=== PATIENT | male | born 1955 | race Caucasian/White ===

== ENCOUNTER 2020-05-14 11:00 | Inpatient (IN) | payer MEDICARE ==
[2020-05-14 11:40] LABS: #Lymphocytes 0.6 thou/uL (1.20-3.40); #Monocytes 0.9 thou/uL (0.11-0.59); #Neutrophils 16.5 thou/uL (1.40-6.50); %Basophils 0.1 % (0.0-1.0); %Eosinophils 0.1 % (0.0-10.0); %Lymphocytes 3.5 % (21.0-51.0); %Monocytes 4.9 % (0.0-10.0); %Neutrophils 91.4 % (42.0-75.0); Hemoglobin 12.5 g/dL (14.0-18.0); Mean Corpuscular HGB CONC 33.9 g/dL (32.0-36.0); Mean Corpuscular Hemoglobin 34.2 pg (27.0-31.0); Mean Platelet Volume 8.4 fL (7.4-10.4); Platelet Count 273 thou/uL (130-400); RBC Distribution Width 11.3 % (11.5-14.5); Red Blood Cell (RBC) Count 3.65 mill/uL (4.70-6.10)
[2020-05-14 12:00] LABS: ALT (SGPT) 78 U/L (8-55); AST (SGOT) 52 U/L (5-34); Albumin 3.5 g/dL (3.4-4.8); Alkaline Phosphatase 89 U/L (40-110); Anion Gap 16 mmol/L (10-20); BUN (Urea Nitrogen) 18 mg/dL (8.4-25.7); Bilirubin, Total 0.3 mg/dL (0.2-1.2); Calc. Creatinine Clearance 0 mL/min (70-130); Calcium 8.1 mg/dL (7.8-10.44); Carbon Dioxide 22 mmol/L (23-31); Chloride 103 mmol/L (98-107); Globulin 2.6 g/dL (2.4-3.5); Glucose 137 mg/dL (80-115); Potassium 3.1 mmol/L (3.5-5.1); Protein, Total 6.1 g/dL (5.8-8.1); Sodium 138 mmol/L (136-145)
[2020-05-14] MEDS ORDERED: Acetaminophen 500 MG TAB ONE (12:36)
[2020-05-14] MEDS ORDERED: cefTRIAXone\\ROCEPHIN 2 GM VIAL ONE (12:36)
[2020-05-14] MEDS ORDERED: Albuterol 200 PUFF (6.7GM INHALER) ONE (12:55)
--- NOTE | 2020-05-14 12:58 | RAD ---
PORTABLE CHEST: HISTORY: Positive for COVID. Pneumonia. COMPARISON: 05/12/2020. FINDINGS/IMPRESSION: There are bilateral hazy and confluent infiltrates in the mid and lower lungs. These appear more pro minent when compared to 05/12/2020, although some of this is due to differences in exposure and techni que. POS: AGW
[2020-05-14] MEDS ORDERED: Potassium Chloride 20 MEQ TAB ONE (12:59)
[2020-05-14] MEDS ORDERED: Iopamidol-370 76% 500 ML 1 ML ONE (14:26)
--- NOTE | 2020-05-14 14:51 | CT ---
EXAM: CT angiogram of the chest including 3-D rendering: HISTORY: Worsening shortness of breath COMPARISON: Chest x-ray, 05/12/2020 FINDINGS: There is adequate opacification of the pulmonary arteries. No evidence for aortic aneurysm or dissection. No convincing CT evidence for acute pulmonary embolism. Very extensive patchy groundglass and linear opacity changes noted bilaterally evidence for bilateral Covid pneumonia. Evidence for 3 vessel coronary calcific disease. No evidence for mediastinal mass or adenopathy. Small bilateral pleural effusions. No pericardial effusion. The visualized upper abdomen is unremarkable. IMPRESSION: No convincing CT evidence for acute pulmonary embolism. Exam is somewhat limited in the lower lobes b ecause of motion. Evidence for severe bilateral Covid pneumonia.
[2020-05-14 15:00] LABS: Troponin I 0.024 ng/mL (< 0.028)
[2020-05-14 15:55] VITALS: BMI 38.5
[2020-05-14] MEDS ORDERED: Metoclopramide HCl 10 MG/2 ML VIAL IVP PRN (16:32)
[2020-05-14] MEDS ORDERED: Albuterol Sulfate 2.5 mg/3 ml Neb NEB PRN (16:32)
[2020-05-14] MEDS ORDERED: Cepastat Lozenges 1 LOZ PO PRN (16:32)
[2020-05-14] MEDS ORDERED: Senokot S 8.6-50 MG TAB PO PRN (16:32)
[2020-05-14] MEDS ORDERED: Sodium Chloride 0.65% Nasal 44 ML BOT EA NARE PRN (16:32)
[2020-05-14] MEDS ORDERED: Bisacodyl 10 MG SUPP PR PRN (16:32)
[2020-05-14] MEDS ORDERED: Ondansetron PF 4 MG/2 ML Vial IVP PRN (16:32)
[2020-05-14] MEDS ORDERED: Loperamide HCl 2 MG CAP PO PRN (16:32)
[2020-05-14] MEDS ORDERED: Calcium Carbonate 500 MG ChewTAB PO PRN (16:32)
[2020-05-14] MEDS ORDERED: hydrALAZINE 20 MG/ML VIAL SLOW IVP PRN (16:32)
[2020-05-14] MEDS ORDERED: Ondansetron ODT 4 MG TAB PO PRN (16:32)
[2020-05-14] MEDS ORDERED: HYDROcodone/Acetaminophen 5/325 mg Tablet PO PRN (16:32)
[2020-05-14] MEDS ORDERED: Loratadine 10 MG TAB PO PRN (16:32)
--- NOTE | 2020-05-14 17:00 | PDOC.HHP ---
Hospitalist HPI - History of Present Illness Shortness of breath History of Present Illness: 64-year-old male who was tested positive for COVID-19 on , he was exposed with his daughter on Saturday who was tested positive for COVID-19, he went to urgent care yesterday with increasing shortness of breath and he had chest x-ray done which showed pneumonia, he was given ivermectin and dexamethasone, patient did not improve and he was having increasing shortness of breath and increasing fever and that is why he decided to come to emergency room for further evaluation, today in the emergency room his chest x-ray showed bilateral infiltration in lower lungs, CT angio was negative for PE, he was febr ile, he was requiring more oxygen, with exertion his oxygen saturation was dropping, he was given albuterol inhaler, potassium chloride, Rocephin timolol and IV fluid and subsequently he is admitted to medical floor for further evaluation and treatment. He denies any loss of taste or smell sensation, he is feeling fatigue and tired, he has cough, he denies any sputum, he denies any chest pain or nausea vomiting diarrhea. ED Course: Patient has received 1 L IV fluid, Rocephin, timolol, potassium chloride And albuterol inhaler Hospitalist ROS - Review of Systems Constitutional: reports: fever, chills, weakness, malaise Eyes: denies: pain, vision change, conjunctivae inflammation, eyelid inflammation, redness, other ENT: denies: ear pain, ear discharge, nose pain, nose discharge, nose congestion, mouth pain, mouth swelling, throat pain, throat swelling, other Respiratory: reports: cough, shortness of breath, SOB with excertion. denies: dry, hemoptysis, pleuritic pain, sputum, wheezing, other Cardiovascular: denies: chest pain, palpitations, orthopnea, paroxysmal noc. dyspnea, edema, light headedness, other Gastrointestinal: denies: nausea, vomiting, abdominal pain, diarrhea, constipation, melena, hematochezia, other Genitourinary: denies: dysuria, frequency, incontinence, hematuria, retention, other Musculoskeletal: denies: neck pain, shoulder pain, arm pain, back pain, hand pain, leg pain, foot pain, other Skin: denies: rash, lesions, deyvi, bruising, other - Medication Medications: Resuscitation Status - Order Detail: 05/14/20 13:15 Resuscitation Status Routine Resuscitation Status: FULL: Full Resuscitation Medication Instructions Recorded Confirmed Type Albuterol Sulfate [Albuterol 1 inh PO Q4HR PRN 05/14/20 05/14/20 History Sulfate Hfa] Ascorbic Acid [Vitamin C] 1 tab PO DAILY 05/14/20 05/14/20 History Aspirin Chewable [Aspirin Chewable 1 tablet PO DAILY 05/14/20 05/14/20 History Tablet] Azithromycin 1 tab PO DAILY 05/14/20 05/14/20 History Cholecalciferol (Vitamin D3) 1 tablet PO DAILY 05/14/20 05/14/20 History [Vitamin D3] Dexamethasone 1 tab PO DAILY 05/14/20 05/14/20 History Famotidine 1 tab PO DAILY 05/14/20 05/14/20 History Losartan/Hydrochlorothiazide 1 tab PO DAILY 05/14/20 05/14/20 History [Losartan-Hctz 100-25 mg Tab] Melatonin 1 tab PO HS PRN 05/14/20 05/14/20 History Pravastatin Sodium [Pravachol] 1 tab PO DAILY 05/14/20 05/14/20 History Quercetin Dihydrate 1 tab PO DAILY 05/14/20 05/14/20 History Tamsulosin HCl [Flomax] 1 tablet PO DAILY 05/14/20 05/14/20 History Vitamin B Complex [B Complex] 1 tablet PO 05/14/20 History Zinc Gluconate [Zinc] 1 tab PO DAILY 05/14/20 05/14/20 History Allergies No Known Allergies Allergy (Verified 05/14/20 16:04) Hospitalist History - Past Medical History Other Medical History: Benign enlargement of prostate Vitamin B12 deficiency Hypertension Dyslipidemia Obesity - Past Surgical History Other Surgical History: Varicose vein surgery, skin cancer removed Past psychiatric history reviewed and negative - Family History Other Family History: No strong family history of premature coronary artery disease stroke or cancer - Social History Other Social History: Patient is chews tobacco daily, for last 30 years, no alcohol abuse, no other illicit drug abuse, lives at home with family - Exam General Appearance: NAD, awake alert Eye: PERRL, anicteric sclera ENT: normocephalic atraumatic, no oropharyngeal lesions Neck: supple, symmetric, no JVD, no thyromegaly Heart: RRR, no murmur, no gallops, no rubs Respiratory: rales, tachypneic Gastrointestinal: soft, non-tender, non-distended, normal bowel sounds Gastrointestinal - other findings: Obesity Extremities: no cyanosis, no clubbing, no edema Skin: normal turgor, no lesions Neurological: no focal deficits Musculoskeletal: normal tone, normal strength Psychiatric: normal affect, normal behavior Hospitalist Results - Labs Result Diagrams: 05/14/20 11:29 05/14/20 11:29 Lab results: WBC 18.0 thou/uL (4.8-10.8) H 05/14/20 11:29 Hgb 12.5 g/dL (14.0-18.0) L 05/14/20 11:29 Hct 36.9 % (42.0-52.0) L 05/14/20 11: MCV 101.0 fL (78.0-98.0) H 05/14/20 11:29 Plt Count 273 thou/uL (130-400) 05/14/20 11:29 Neutrophils % 91.4 % (42.0-75.0) H 05/14/20 11:29 Sodium 138 mmol/L (136-145) 05/14/20 11:29 Potassium 3.1 mmol/L (3.5-5.1) L 05/14/20 11:29 Chloride 103 mmol/L (98-107) 05/14/20 11:29 Carbon Dioxide 22 mmol/L (23-31) L 05/14/20 11:29 BUN 18 mg/dL (8.4-25.7) 05/14/20 11:29 Creatinine 0.95 mg/dL (0.7-1.3) 05/14/20 11:29 Glucose 137 mg/dL (80-115) H 05/14/20 11:29 Lactic Acid 1.7 mmol/L (0.5-2.2) 05/14/20 11:29 Calcium 8.1 mg/dL (7.8-10.44) 05/14/20 11:29 Total Bilirubin 0.3 mg/dL (0.2-1.2) 05/14/20 11:29 AST 52 U/L (5-34) H 05/14/20 11:29 ALT 78 U/L (8-55) H 05/14/20 11:29 Alkaline Phosphatase 89 U/L (40-110) 05/14/20 11:29 Troponin I 0.024 ng/mL (< 0.028) 05/14/20 14:22 Serum Total Protein 6.1 g/dL (5.8-8.1) 05/14/20 11:29 Albumin 3.5 g/dL (3.4-4.8) 05/14/20 11:29 Hospitalist H&P A/P - Problem (1) Acute respiratory failure due to COVID-19 Code(s): U07.1 - COVID-19; J96.00 - ACUTE RESPIRATORY FAILURE, UNSP W HYPOXIA OR HYPERCAPNIA Status: Acute Assessment and Plan: Continue oxygen to maintain saturation above 92%, related with Covid pneumonia, will monitor closely for any further deterioration, (2) Pneumonia due to 2019 novel coronavirus Code(s): U07.1 - COVID-19; J12.89 - OTHER VIRAL PNEUMONIA Status: Acute Assessment and Plan: Chest x-ray and CT scan findings suggestive pneumonia due to COVID-19, patient may benefit from remdesivir therapy, will consult ID, continue dexamethasone, continue oxygen, continue vitamin supplementation (3) Hypokalemia Code(s): E87.6 - HYPOKALEMIA Status: Acute Assessment and Plan: Potassium chloride replaced in the emergency room we will repeat labs tomorrow (4) Transaminitis Code(s): R74.01 - ELEVATION OF LEVELS OF LIVER TRANSAMINASE LEVELS Status: Acute Assessment and Plan: Due to COVID-19 infection (5) Macrocytic anemia Code(s): D53.9 - NUTRITIONAL ANEMIA, UNSPECIFIED Status: Chronic (6) Dyslipidemia Code(s): E78.5 - HYPERLIPIDEMIA, UNSPECIFIED Status: Chronic (7) Benign enlargement of prostate Code(s): N40.0 - BENIGN PROSTATIC HYPERPLASIA WITHOUT LOWER URINRY TRACT SYMP Status: Chronic Qualifiers: Lower urinary tract symptom presence: symptoms absent Qualified Code(s): N40.0 - Benign prostatic hyperplasia without lower urinary tract symptoms (8) Obesity (BMI 30-39.9) Code(s): E66.9 - OBESITY, UNSPECIFIED Status: Chronic - Plan Plan: Admission to medical floor Oxygen to keep saturation above 92% Empiric Rocephin and azithromycin Continue dexamethasone Continue vitamin supplementation ID consultation Was monitoring for any deterioration Repeat labs tomorrow DVT prophylaxis Lovenox 40 mg subcu daily GI prophylaxis Pepcid 20 mg p.o. twice daily Home medication reconciled. CODE STATUS patient is full code
[2020-05-14] MEDS ORDERED: Non-Formulary Item 1 EACH (Albuterol Sulfate [Albuterol Sulfate Hfa] 8.5 GM Hfa.Aer.Ad) PO PRN (17:05)
[2020-05-14 18:00] LABS: Troponin I 0.031 ng/mL (< 0.028)
[2020-05-14] MEDS: Azithromycin 500 MG in Sodium Chloride 0.9% 250 ML 250 ML IVPB SCH (18:01)
[2020-05-14] MEDS: Famotidine 20 MG TAB PO SCH (20:06)
[2020-05-14] MEDS: Atorvastatin Calcium 10 MG TAB PO SCH (20:06)
[2020-05-14] MEDS: Benzonatate 100 MG CAP PO PRN (20:36)
[2020-05-14] MEDS: Acetaminophen 325 MG TAB PO PRN (20:36)
[2020-05-14] MEDS: Zolpidem Tartrate 5 MG TAB PO PRN (20:39)
[2020-05-14] MEDS: Diabetic Tussin 200 MG/10 ML UDCUP PO PRN (22:17)
[2020-05-14] MEDS: Albuterol 200 PUFF (6.7GM INHALER) INH PRN (22:37)
[2020-05-14] MEDS ORDERED: Furosemide 40 MG/4 ML VIAL ONE (23:34)
[2020-05-14] MEDS ORDERED: Ibuprofen 200 MG TAB PO SCH (23:45)
[2020-05-14] MEDS ORDERED: Furosemide 40 MG/4 ML VIAL SLOW IVP SCH (23:45)
[2020-05-14 23:48] LABS: Actual Bicarbonate (HCO3a) 24.6 mEq/L (22-28); Base Excess (BEa) 0.4 mEq/L (-2.0 to +3.0); CO2 Tension 38.2 mmHg (35.0-45.0); Calcium, Ionized (arterial) 1.11 mmol/L (1.12-1.30); Carboxyhemoglobin (COHb) 0.4 gm% (0.0-3.0); Hemoglobin (Hb) 12.6 g/dL (14.0-18.0); O2 Tension (PaO2), arterial 66.7 mmHg (> 80.0); Potassium - ABG Lab 3.25 mmol/L (3.70-5.30); pH, Arterial 7.43 (7.35-7.45)
[2020-05-15] MEDS ORDERED: Lorazepam 2 MG/ML VIAL SLOW IVP PRN (00:53)
[2020-05-15] MEDS ORDERED: Lorazepam 2 MG/ML VIAL SLOW IVP SCH (01:00)
[2020-05-15 05:25] LABS: Puncture Site RRA
[2020-05-15 06:10] LABS: #Lymphocytes 1.2 thou/uL (1.20-3.40); #Monocytes 1.1 thou/uL (0.11-0.59); #Neutrophils 12.7 thou/uL (1.40-6.50); %Basophils 0.1 % (0.0-1.0); %Eosinophils 0.2 % (0.0-10.0); %Lymphocytes 8.1 % (21.0-51.0); %Monocytes 7.6 % (0.0-10.0); %Neutrophils 84.1 % (42.0-75.0); Hemoglobin 12.1 g/dL (14.0-18.0); Mean Corpuscular HGB CONC 33.8 g/dL (32.0-36.0); Mean Corpuscular Hemoglobin 34.1 pg (27.0-31.0); Mean Platelet Volume 8.4 fL (7.4-10.4); Platelet Count 252 thou/uL (130-400); RBC Distribution Width 11.5 % (11.5-14.5); Red Blood Cell (RBC) Count 3.55 mill/uL (4.70-6.10)
[2020-05-15 06:31] LABS: ALT (SGPT) 65 U/L (8-55); AST (SGOT) 37 U/L (5-34); Albumin 3.2 g/dL (3.4-4.8); Alkaline Phosphatase 76 U/L (40-110); Anion Gap 14 mmol/L (10-20); BUN (Urea Nitrogen) 16 mg/dL (8.4-25.7); Bilirubin, Total 0.3 mg/dL (0.2-1.2); CRP (Inflammatory) 25.14 mg/dL (= or < 0.5); Calc. Creatinine Clearance 154 mL/min (70-130); Calcium 8.1 mg/dL (7.8-10.44); Carbon Dioxide 27 mmol/L (23-31); Chloride 102 mmol/L (98-107); Globulin 3.1 g/dL (2.4-3.5); Glucose 107 mg/dL (80-115); Magnesium 1.7 mg/dL (1.6-2.6); Potassium 3.3 mmol/L (3.5-5.1); Protein, Total 6.3 g/dL (5.8-8.1); Sodium 140 mmol/L (136-145)
[2020-05-15] MEDS: Dexamethasone 4 mg/ml Vial SLOW IVP SCH (08:24)
[2020-05-15] MEDS: Enoxaparin Sodium 40 MG/0.4 ML SYRINGE SC SCH (08:24)
[2020-05-15] MEDS: Zinc Sulfate 220 MG CAP PO SCH (08:25)
[2020-05-15] MEDS: Aspirin Chewable 81 MG TAB PO SCH (08:25)
[2020-05-15] MEDS: Ascorbic Acid 500 mg Chewable Tablet PO SCH (08:25)
[2020-05-15] MEDS: Famotidine 20 MG TAB PO SCH ×2 (08:25→20:59)
[2020-05-15] MEDS: Tamsulosin HCl 0.4 MG CAP PO SCH (08:25)
[2020-05-15] MEDS: Cholecalciferol 1,000 UNITS (25 MCG) TAB PO SCH (08:26)
[2020-05-15] MEDS ORDERED: FLU VACC QS2020-21(65YR UP)/PF 240 MCG/0.7 ML SYRINGE IM ONE (09:00)
[2020-05-15] MEDS ORDERED: Potassium Chloride 20 MEQ TAB PO SCH (09:15)
--- NOTE | 2020-05-15 11:54 | PDOC.HOSPP ---
- Subjective Encounter Date: 05/15/20 Encounter Time: 08:00 Subjective: Patient is able to talk in full sentence today, patient is on high flow oxygen, patient is feeling better than yesterday, no chest pain or fever, - Objective Vital Signs & Weight: Vital Signs (12 hours) Temp Pulse Resp BP Pulse Ox 05/15/20 10:49 95 05/15/20 08:00 98.4 F 82 20 142/88 H 96 05/15/20 04:00 98.1 F 71 25 H 148/93 H 100 05/15/20 03:44 98 05/15/20 01:30 97 05/15/20 00:00 99.8 F H 85 30 H 145/78 H 97 Weight Weight 268 lb 4.841 oz I&O: 05/14/20 05/15/20 05/16/20 06:59 06:59 06:59 Intake Total 240 240 Balance 240 240 Result Diagrams: 05/15/20 05:44 05/15/20 05:44 Hospitalist ROS - Review of Systems Constitutional: reports: weakness Eyes: denies: pain, vision change, conjunctivae inflammation, eyelid inflammation, redness, other ENT: denies: ear pain, ear discharge, nose pain, nose discharge, nose congestion, mouth pain, mouth swelling, throat pain, throat swelling, other Respiratory: reports: cough, shortness of breath, SOB with excertion. denies: dry, hemoptysis, pleuritic pain, sputum, wheezing, other Cardiovascular: denies: chest pain, palpitations, orthopnea, paroxysmal noc. dyspnea, edema, light headedness, other Gastrointestinal: denies: nausea, vomiting, abdominal pain, diarrhea, constipation, melena, hematochezia, other Genitourinary: denies: dysuria, frequency, incontinence, hematuria, retention, other Musculoskeletal: denies: neck pain, shoulder pain, arm pain, back pain, hand pain, leg pain, foot pain, other - Medication Medications: Active Medications Generic Name Dose Route Start Last Admin Trade Name Freq PRN Reason Stop Dose Admin Acetaminophen 650 mg 05/14/20 16:32 05/14/20 20:36 Acetaminophen 325 Mg Tab PO 650 mg Q4H PRN Administration Headache/Fever/Mild Pain (1-3) Albuterol Sulfate 2 puff 05/14/20 17:32 05/14/20 22:37 Albuterol 200 Puff (6.7gm Inhaler) INH 2 puff Q4H PRN Administration SOB &/or Wheezing Ascorbic Acid 1,000 mg 05/15/20 09:00 05/15/20 08:25 Ascorbic Acid 500 Mg Chewable Tablet PO 1,000 mg DAILY RADHA Administration Aspirin 81 mg 05/15/20 09:00 05/15/20 08:25 Aspirin Chewable 81 Mg Tab PO 81 mg DAILY RADHA Administration Atorvastatin Calcium 10 mg 05/14/20 21:00 05/14/20 20:06 Atorvastatin Calcium 10 Mg Tab PO 10 mg HS RADHA Administration Benzonatate 100 mg 05/14/20 16:32 05/14/20 20:36 Benzonatate 100 Mg Cap PO 100 mg Q6H PRN Administration Cough Cholecalciferol 2,000 units 05/15/20 09:00 05/15/20 08:26 Cholecalciferol 1,000 Units (25 Mcg) Tab PO 2,000 units DAILY RADHA Administration Dexamethasone 6 mg 05/15/20 09:00 05/15/20 08:24 Dexamethasone 4 Mg/Ml Vial SLOW IVP 6 mg DAILY RADHA Administration Enoxaparin Sodium 40 mg 05/15/20 09:00 05/15/20 08:24 Enoxaparin Sodium 40 Mg/0.4 Ml Syringe SC 40 mg 0900 RADHA Administration Famotidine 20 mg 05/14/20 21:00 05/15/20 08:25 Famotidine 20 Mg Tab PO 20 mg BID RADHA Administration Guaifenesin 200 mg 05/14/20 16:32 05/14/20 22:17 Diabetic Tussin 200 Mg/10 Ml Udcup PO 200 mg Q4H PRN Administration Cough Azithromycin 500 mg/ Sodium 250 mls @ 250 mls/hr 05/14/20 18:00 05/14/20 18:0 1 Chloride IVPB 250 mls 1800 RADHA Administration Potassium Chloride 40 meq 05/15/20 09:15 05/15/20 10:38 Potassium Chloride 20 Meq Tab PO 05/15/20 12:00 40 meq NOW RADHA Administration Tamsulosin HCl 0.4 mg 05/15/20 09:00 05/15/20 08:25 Tamsulosin Hcl 0.4 Mg Cap PO 0.4 mg DAILY RADHA Administration Zinc Sulfate 220 mg 05/15/20 09:00 05/15/20 08:25 Zinc Sulfate 220 Mg Cap PO 220 mg DAILY RADHA Administration Zolpidem Tartrate 5 mg 05/14/20 16:32 05/14/20 20:39 Zolpidem Tartrate 5 Mg Tab PO 5 mg HSPRN PRN Administration Insomnia - Exam General Appearance: NAD, awake alert Eye: PERRL, anicteric sclera ENT: normocephalic atraumatic, no oropharyngeal lesions Neck: supple, symmetric, no JVD, no thyromegaly Heart: RRR, no murmur, no gallops, no rubs Respiratory: no wheezes, no rales, no ronchi Gastrointestinal: soft, non-tender, non-distended, normal bowel sounds Gastrointestinal - other findings: Obesity noted Extremities: no clubbing, no edema Skin: normal turgor, no lesions Neurological: no focal deficits Musculoskeletal: normal tone, normal strength, no muscle wasting Psychiatric: normal affect, normal behavior Hosp A/P (1) Acute respiratory failure due to COVID-19 Code(s): U07.1 - COVID-19; J96.00 - ACUTE RESPIRATORY FAILURE, UNSP W HYPOXIA OR HYPERCAPNIA Status: Acute (2) Pneumonia due to 2019 novel coronavirus Code(s): U07.1 - COVID-19; J12.89 - OTHER VIRAL PNEUMONIA Status: Acute (3) Hypokalemia Code(s): E87.6 - HYPOKALEMIA Status: Acute (4) Transaminitis Code(s): R74.01 - ELEVATION OF LEVELS OF LIVER TRANSAMINASE LEVELS Status: Acute (5) Macrocytic anemia Code(s): D53.9 - NUTRITIONAL ANEMIA, UNSPECIFIED Status: Chronic (6) Dyslipidemia Code(s): E78.5 - HYPERLIPIDEMIA, UNSPECIFIED Status: Chronic (7) Benign enlargement of prostate Code(s): N40.0 - BENIGN PROSTATIC HYPERPLASIA WITHOUT LOWER URINRY TRACT SYMP Status: Chronic Qualifiers: Lower urinary tract symptom presence: symptoms absent Qualified Code(s): N40.0 - Benign prostatic hyperplasia without lower urinary tract symptoms (8) Obesity (BMI 30-39.9) Code(s): E66.9 - OBESITY, UNSPECIFIED Status: Chronic - Plan old records reviewed/req, continue antibiotics, respiratory therapy, DVT proph w/lovenox Continue high flow oxygen Continue dexamethasone Continue vitamin supplementation ID has been consulted, may start remdesivir if approval received from ID Medications reviewed and continue provide symptomatic and supportive care Closely monitor for any deterioration.
[2020-05-15] MEDS: cefTRIAXone\\ROCEPHIN 1 GM in Sodium Chloride 0.9% 100 ML IVPB SCH (12:25)
[2020-05-15] MEDS: Diabetic Tussin 200 MG/10 ML UDCUP PO PRN (12:51)
[2020-05-15] MEDS: Azithromycin 500 MG in Sodium Chloride 0.9% 250 ML 250 ML IVPB SCH (17:29)
[2020-05-15] MEDS: Atorvastatin Calcium 10 MG TAB PO SCH (20:30)
[2020-05-15] MEDS: Albuterol 200 PUFF (6.7GM INHALER) INH PRN (20:59)
[2020-05-15] MEDS: Benzonatate 100 MG CAP PO PRN (21:02)
[2020-05-15] MEDS: Zolpidem Tartrate 5 MG TAB PO PRN (23:00)
[2020-05-16] MEDS: Diabetic Tussin 200 MG/10 ML UDCUP PO PRN ×2 (00:54→23:32)
[2020-05-16] MEDS: Albuterol 200 PUFF (6.7GM INHALER) INH PRN ×2 (00:54→01:44)
[2020-05-16] MEDS ORDERED: ALPRAZolam 0.5 MG TAB PO SCH (01:30)
[2020-05-16 05:17] LABS: #Lymphocytes 1.4 thou/uL (1.20-3.40); #Monocytes 0.9 thou/uL (0.11-0.59); #Neutrophils 9.3 thou/uL (1.40-6.50); %Basophils 0.2 % (0.0-1.0); %Eosinophils 0.2 % (0.0-10.0); %Lymphocytes 11.6 % (21.0-51.0); Hemoglobin 12.3 g/dL (14.0-18.0); Mean Corpuscular HGB CONC 33.8 g/dL (32.0-36.0); Mean Corpuscular Hemoglobin 34.9 pg (27.0-31.0); Mean Platelet Volume 8.5 fL (7.4-10.4); Platelet Count 254 thou/uL (130-400); RBC Distribution Width 11.6 % (11.5-14.5); Red Blood Cell (RBC) Count 3.51 mill/uL (4.70-6.10); White Blood Cell (WBC) Count 11.7 thou/uL (4.8-10.8)
[2020-05-16 05:36] LABS: Lactic Acid 1.2 mmol/L (0.5-2.2)
[2020-05-16 05:42] LABS: ALT (SGPT) 60 U/L (8-55); AST (SGOT) 34 U/L (5-34); Albumin 3.2 g/dL (3.4-4.8); Alkaline Phosphatase 72 U/L (40-110); Anion Gap 14 mmol/L (10-20); BUN (Urea Nitrogen) 20 mg/dL (8.4-25.7); Bilirubin, Total 0.3 mg/dL (0.2-1.2); Calc. Creatinine Clearance 169 mL/min (70-130); Calcium 8.4 mg/dL (7.8-10.44); Carbon Dioxide 28 mmol/L (23-31); Chloride 102 mmol/L (98-107); Glucose 114 mg/dL (80-115); Magnesium 1.9 mg/dL (1.6-2.6); Potassium 3.9 mmol/L (3.5-5.1); Protein, Total 6.2 g/dL (5.8-8.1); Sodium 140 mmol/L (136-145)
--- NOTE | 2020-05-16 08:07 | RAD ---
PORTABLE CHEST: HISTORY: Shortness of breath. COMPARISON: 05/14/2020. FINDINGS/IMPRESSION: There are bilateral confluent infiltrates in the left mid lung and perihilar regions with other more diffuse hazy infiltrates bilaterally. Overall worsening of the infiltrates when compared to 0. POS: AGW
[2020-05-16] MEDS: Cholecalciferol 1,000 UNITS (25 MCG) TAB PO SCH (09:21)
[2020-05-16] MEDS: Dexamethasone 4 mg/ml Vial SLOW IVP SCH (09:21)
[2020-05-16] MEDS: Famotidine 20 MG TAB PO SCH ×2 (09:21→21:09)
[2020-05-16] MEDS: Aspirin Chewable 81 MG TAB PO SCH (09:21)
[2020-05-16] MEDS: Tamsulosin HCl 0.4 MG CAP PO SCH (09:21)
[2020-05-16] MEDS: Zinc Sulfate 220 MG CAP PO SCH (09:21)
[2020-05-16] MEDS: Ascorbic Acid 500 mg Chewable Tablet PO SCH (09:21)
[2020-05-16] MEDS: Enoxaparin Sodium 40 MG/0.4 ML SYRINGE SC SCH (09:22)
[2020-05-16] MEDS: cefTRIAXone\\ROCEPHIN 1 GM in Sodium Chloride 0.9% 100 ML IVPB SCH (12:26)
[2020-05-16] MEDS: Benzonatate 100 MG CAP PO PRN (17:14)
[2020-05-16] MEDS: Azithromycin 500 MG in Sodium Chloride 0.9% 250 ML 250 ML IVPB SCH (17:14)
--- NOTE | 2020-05-16 18:57 | PDOC.HOSPP ---
- Subjective Encounter Date: 05/16/20 Subjective: Seen and examined at bedside in no acute distress. Remains on high flow oxygen however speaking in full sentences with no evidence of distress. Does tell me he feels slightly better from yesterday. Denies any fever, chills, malaise. Remains MANCILLA. COVID19 positive with x-ray showing worsening infiltrate. Remains on steroids, antibiotics. Awaiting ID decision regarding Remdesivir. - Objective Vital Signs & Weight: Vital Signs (12 hours) Temp Pulse Resp BP Pulse Ox 05/16/20 16:35 97.8 F 67 22 H 120/65 96 05/16/20 12:00 98.0 F 58 L 22 H 159/78 H 95 05/16/20 09:08 98.0 F 57 L 20 157/88 H 93 L 05/16/20 08:00 93 L Weight Weight 268 lb 4.841 oz I&O: 05/15/20 05/16/20 05/17/20 06:59 06:59 06:59 Intake Total 240 960 960 Balance 240 960 960 Result Diagrams: 05/16/20 04:28 05/16/20 04:28 Radiology Reviewed by me: Yes Hospitalist ROS - Review of Systems Constitutional: reports: weakness. denies: fever, chills, sweats, malaise, other Respiratory: reports: cough, dry, shortness of breath, SOB with excertion Cardiovascular: denies: chest pain, palpitations, orthopnea, paroxysmal noc. dyspnea, edema, light headedness, other Gastrointestinal: denies: nausea, vomiting, abdominal pain, diarrhea, constipation, melena, hematochezia, other Genitourinary: denies: dysuria, frequency, incontinence, hematuria, retention, other Neurological: denies: weakness, numbness, incoordination, change in speech, confusion, seizures, other - Medication Medications: Active Medications Generic Name Dose Route Start Last Admin Trade Name Freq PRN Reason Stop Dose Admin Acetaminophen 650 mg 05/14/20 16:32 05/14/20 20:36 Acetaminophen 325 Mg Tab PO 650 mg Q4H PRN Administration Headache/Fever/Mild Pain (1-3) Albuterol Sulfate 2 puff 05/14/20 17:32 05/16/20 01:44 Albuterol 200 Puff (6.7gm Inhaler) INH 2 puff Q4H PRN Administration SOB &/or Wheezing Ascorbic Acid 1,000 mg 05/15/20 09:00 05/16/20 09:21 Ascorbic Acid 500 Mg Chewable Tablet PO 1,000 mg DAILY RADHA Administration Aspirin 81 mg 05/15/20 09:00 12 09:21 Aspirin Chewable 81 Mg Tab PO 81 mg DAILY RADHA Administration Atorvastatin Calcium 10 mg 05/14/20 21:00 05/15/20 20:30 Atorvastatin Calcium 10 Mg Tab PO 10 mg HS RADHA Administration Benzonatate 100 mg 05/14/20 16:32 05/16/20 17:14 Benzonatate 100 Mg Cap PO 100 mg Q6H PRN Administration Cough Cholecalciferol 2,000 units 05/15/20 09:00 05/16/20 09:21 Cholecalciferol 1,000 Units (25 Mcg) Tab PO 2,000 units DAILY RADHA Administration Dexamethasone 6 mg 05/15/20 09:00 05/16/20 09:21 Dexamethasone 4 Mg/Ml Vial SLOW IVP 6 mg DAILY RADHA Administration Enoxaparin Sodium 40 mg 05/15/20 09:00 05/16/20 09:22 Enoxaparin Sodium 40 Mg/0.4 Ml Syringe SC 40 mg 0900 RADHA Administration Famotidine 20 mg 05/14/20 21:00 05/16/20 09:21 Famotidine 20 Mg Tab PO 20 mg BID RADHA Administration Guaifenesin 200 mg 05/14/20 16:32 05/16/20 00:54 Diabetic Tussin 200 Mg/10 Ml Udcup PO 200 mg Q4H PRN Administration Cough Tamsulosin HCl 0.4 mg 05/15/20 09:00 05/16/20 09:21 Tamsulosin Hcl 0.4 Mg Cap PO 0.4 mg DAILY RADHA Administration Zinc Sulfate 220 mg 05/15/20 09:00 05/16/20 09:21 Zinc Sulfate 220 Mg Cap PO 220 mg DAILY RADHA Administration Zolpidem Tartrate 5 mg 05/14/20 16:32 05/15/20 23:00 Zolpidem Tartrate 5 Mg Tab PO 5 mg HSPRN PRN Administration Insomnia - Exam General Appearance: NAD, awake alert Eye: PERRL, anicteric sclera ENT: normocephalic atraumatic, no oropharyngeal lesions Neck: supple, symmetric, no JVD Heart: RRR, no murmur, no gallops Respiratory - other findings: Mild expiratory wheezing, decreased breath sounds, +'ve cough Gastrointestinal: soft, non-tender, non-distended, normal bowel sounds, no palpable masses, no hepatomegaly, no splenomegaly, no bruit Neurological: cranial nerve grossly intact, normal sensation to touch, no weakness, no focal deficits, no new deficit Hosp A/P - Plan old records reviewed/req A/P: Admitted for worsening SOB & hypoxia. Chest imaging with bilateral infiltrates. COVID19 positive. # COVID19 PNA: Refers some mild subjective improvement. Remains dyspneic primarily worsened with exertion. Started transiently on course of Ceftriaxone plus Azithromycin. Remains on daily dexamethasone. Continue with inhalers. ID consulted for decision regarding Remdesivir. # HTN: Continue with current management. Monitor hemodynamics closely. # Anxiety: Continue with xanax PRN. # BPH: Continue with current management. DISPOSITION: Appears stable with subjective improvement. Continue with IV ABX, steroids, inhalers. Awaiting recommendations by ID regarding Remdesivir.
[2020-05-16 19:44] LABS: #Lymphocytes 0.9 thou/uL (1.20-3.40); #Neutrophils 10.3 thou/uL (1.40-6.50); %Eosinophils 0.3 % (0.0-10.0); %Lymphocytes 7.2 % (21.0-51.0); %Monocytes 8.1 % (0.0-10.0); %Neutrophils 84.3 % (42.0-75.0); Hemoglobin 12.9 g/dL (14.0-18.0); Mean Corpuscular HGB CONC 33.4 g/dL (32.0-36.0); Mean Corpuscular Hemoglobin 33.6 pg (27.0-31.0); Mean Platelet Volume 8.8 fL (7.4-10.4); Platelet Count 267 thou/uL (130-400); RBC Distribution Width 11.5 % (11.5-14.5); Red Blood Cell (RBC) Count 3.84 mill/uL (4.70-6.10); White Blood Cell (WBC) Count 12.2 thou/uL (4.8-10.8)
[2020-05-16 20:48] LABS: Anion Gap 13 mmol/L (10-20); BUN (Urea Nitrogen) 23 mg/dL (8.4-25.7); Calc. Creatinine Clearance 169 mL/min (70-130); Calcium 8.5 mg/dL (7.8-10.44); Carbon Dioxide 26 mmol/L (23-31); Chloride 103 mmol/L (98-107); Glucose 150 mg/dL (80-115); Potassium 4.3 mmol/L (3.5-5.1); Sodium 138 mmol/L (136-145)
[2020-05-16] MEDS: Atorvastatin Calcium 10 MG TAB PO SCH (21:09)
[2020-05-16] MEDS: Zolpidem Tartrate 5 MG TAB PO PRN (23:32)
--- NOTE | 2020-05-17 01:06 | CON ---
DATE OF CONSULTATION: 05/16/2020 REASON FOR CONSULTATION: COVID pneumonia. HISTORY OF PRESENT ILLNESS: A 65-year-old with history of BPH and B12 deficiency, hyperlipidemia, and hypertension, who developed COVID-19 symptoms on May 04, so this is the 12th day of his illness, initially managed in the outpatient setting with ivermectin and then he was given a prescription for Decadron. After a few days, he apparently was desaturating down in the mid 80s at home without oxygen supplementation, got admitted on the of this month, two days ago, did not meet criteria for remdesivir, so he is receiving Decadron. It is like he is getting Rocephin too, which he does not need. He is sitting in bed right now and is actually coughing intermittently, but appears pretty comfortable. He is able to speak in full sentences. He denies any headaches. No sore throat, odynophagia, or dysphagia. No vomiting. No chest pain. No abdominal pain. No joint symptoms. No neurological symptoms. PAST MEDICAL HISTORY: Hyperlipidemia, B12 deficiency, BPH, and hypertension. SOCIAL HISTORY: Chews tobacco, but does not smoke. He did smoke for 30 years. 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 No alcoholic beverage use. ALLERGIES: NONE. MEDICATIONS: He had been on, 1. Pravastatin. 2. Azithromycin. 3. Tamsulosin. 4. Albuterol. Currently, he is on, 1. Vitamin C. 2. Aspirin. 3. Azithromycin. 4. Tessalon. 5. Ceftriaxone. 6. Reglan. 7. A few other p.r.n. medications. PHYSICAL EXAMINATION: VITAL SIGNS: T-max 100.7 on admission, now he has been afebrile. His O2 saturations are 97% to 98% with high-flow nasal cannula at 45. He had been on 4 and 5 L up until yesterday. After brief exercise, there is no drop in his O2 saturations. He is not tachycardic. SKIN: Normal. Peripheral IV access. He is voiding in the toilet. No lymphadenopathy. HEENT: Ocular movements conjugate. Oral cavity normal. NECK: Supple. No jugular vein distention. LUNGS: Scattered inspiratory crackles. No wheezing. HEART: S1, S2. Regular rate. No S3 or S4. ABDOMEN: Soft, not distended or tender. No ascites. No bladder distention. No joint inflammatory activity. NEUROLOGIC: Nonfocal. No edema. Cognitive function appears perfectly fine. LABORATORY DATA: His white cell count is 18,000, down to 11.7; hemoglobin 12.3; platelets 254. D-dimer 0.91. Creatinine 0.73, ALT 60. BNP 184. CRP 21. Albumin 3.2. Blood cultures, no growth at 48 hours. The patient had a repeat chest x-ray, which showed diffuse hazy infiltrates. ASSESSMENT: 1. Severe COVID pneumonia, on high-flow nasal cannula O2. 2. Hypertension, hyperlipidemia, and chronic smoking history. DISCUSSION: The patient fortunately is not desaturating too much on brief exercise, which is a good prognostic indicator. He does not need azithromycin or Rocephin, just leave him on Decadron. He is not eligible for remdesivir and monitor markers to guide disposition. Job ID: [id number]
[2020-05-17] MEDS: Diabetic Tussin 200 MG/10 ML UDCUP PO PRN ×2 (06:09→17:32)
[2020-05-17] MEDS: Ascorbic Acid 500 mg Chewable Tablet PO SCH (08:20)
[2020-05-17] MEDS: Aspirin Chewable 81 MG TAB PO SCH (08:21)
[2020-05-17] MEDS: Zinc Sulfate 220 MG CAP PO SCH (08:21)
[2020-05-17] MEDS: Cholecalciferol 1,000 UNITS (25 MCG) TAB PO SCH (08:21)
[2020-05-17] MEDS: Tamsulosin HCl 0.4 MG CAP PO SCH (08:21)
[2020-05-17] MEDS: Benzonatate 100 MG CAP PO PRN ×2 (08:22→20:51)
[2020-05-17] MEDS: Enoxaparin Sodium 40 MG/0.4 ML SYRINGE SC SCH (08:25)
[2020-05-17] MEDS: Dexamethasone 4 mg/ml Vial SLOW IVP SCH (08:25)
[2020-05-17] MEDS: Famotidine 20 MG TAB PO SCH ×2 (08:26→20:51)
[2020-05-17] MEDS ORDERED: cefTRIAXone\\ROCEPHIN 1 GM in Sodium Chloride 0.9% 100 ML IVPB SCH (09:00)
[2020-05-17] MEDS ORDERED: Azithromycin 500 MG in Sodium Chloride 0.9% 250 ML 250 ML IVPB SCH (09:00)
--- NOTE | 2020-05-17 16:06 | PRG ---
DATE OF SERVICE: 05/17/2020 SUBJECTIVE: In bed, feeling a little better, still has nasal cannula O2 at high-flow. No abdominal pain. He states that he has noticed some decrease in the urine output. OBJECTIVE: VITAL SIGNS: T-max 100.4 on May 14, he has been afebrile since. BP 140/76, pulse 53, and respiratory rate 20 to 26. He is on high-flow at 45. He is saturating at 97 to 100. After a brief exercise basically sit-ups, he goes down to 95 and goes right back up after stopping. LUNGS: With a few crackles scattered. HEART: S1 and S2. Regular rate. ABDOMEN: Soft, not distended or tender. No bladder distention. EXTREMITIES: Moves all extremities equally. LABORATORY DATA: D-dimer 0.91. Ferritin needs to be repeated. CRP is down to 21, repeat it tomorrow. ASSESSMENT AND DISCUSSION: Severe COVID pneumonia, hypertension, and hyperlipidemia. Still quite stable, he is not desaturating that much. Looks like he is going to have a quicker improvement. Recheck his markers for tomorrow. Job ID: [id number]
--- NOTE | 2020-05-17 17:43 | PDOC.HOSPP ---
- Subjective Encounter Date: 05/17/20 Subjective: Seen and examined at bedside in no acute distress. Remains on high flow oxygen however speaking in full sentences with no evidence of distress. Denies any fever, chills, malaise. Remains MANCILLA but continues to state gradual improvement. COVID19 positive with x-ray showing worsening infiltrate. Remains on steroids. Seen by ID who advices against antibiotics and Remdesivir. Case discussed with patient in detail. Daughter updated about above plan. - Objective Vital Signs & Weight: Vital Signs (12 hours) Temp Pulse Resp BP Pulse Ox 05/17/20 10:16 97.9 F 53 L 26 H 145/76 H 97 05/17/20 08:00 94 L Weight Weight 268 lb 4.841 oz I&O: 05/16/20 05/17/20 05/18/20 06:59 06:59 06:59 Intake Total 960 1200 Output Total 550 Balance 960 650 Result Diagrams: 05/16/20 19:34 05/16/20 19:33 Hospitalist ROS - Review of Systems Constitutional: denies: fever, chills, sweats, weakness, malaise, other Respiratory: reports: cough, dry, shortness of breath, SOB with excertion Cardiovascular: denies: chest pain, palpitations, orthopnea, paroxysmal noc. dyspnea, edema, light headedness, other Gastrointestinal: denies: nausea, vomiting, abdominal pain, diarrhea, constipation, melena, hematochezia, other Musculoskeletal: denies: neck pain, shoulder pain, arm pain, back pain, hand pain, leg pain, foot pain, other Skin: denies: rash, lesions, deyvi, bruising, other - Medication Medications: Active Medications Generic Name Dose Route Start Last Admin Trade Name Freq PRN Reason Stop Dose Admin Acetaminophen 650 mg 05/14/20 16:32 05/14/20 20:36 Acetaminophen 325 Mg Tab PO 650 mg Q4H PRN Administration Headache/Fever/Mild Pain (1-3) Albuterol Sulfate 2 puff 05/14/20 17:32 05/16/20 01:44 Albuterol 200 Puff (6.7gm Inhaler) INH 2 puff Q4H PRN Administration SOB &/or Wheezing Ascorbic Acid 1,000 mg 05/15/20 09:00 12/08/20 08:20 Ascorbic Acid 500 Mg Chewable Tablet PO 1,000 mg DAILY RADHA Administration Aspirin 81 mg 05/15/20 09:00 05/17/20 08:21 Aspirin Chewable 81 Mg Tab PO 81 mg DAILY RADHA Administration Atorvastatin Calcium 10 mg 05/14/20 21:00 05/16/20 21:09 Atorvastatin Calcium 10 Mg Tab PO 10 mg HS RADHA Administration Benzonatate 100 mg 05/14/20 16:32 05/17/20 08:22 Benzonatate 100 Mg Cap PO 100 mg Q6H PRN Administration Cough Cholecalciferol 2,000 units 05/15/20 09:00 05/17/20 08:21 Cholecalciferol 1,000 Units (25 Mcg) Tab PO 2,000 units DAILY RADHA Administration Dexamethasone 6 mg 05/15/20 09:00 05/17/20 08:25 Dexamethasone 4 Mg/Ml Vial SLOW IVP 6 mg DAILY RADHA Administration Enoxaparin Sodium 40 mg 05/15/20 09:00 05/17/20 08:25 Enoxaparin Sodium 40 Mg/0.4 Ml Syringe SC 40 mg 09 RADHA Administration Famotidine 20 mg 05/14/20 21:00 05/17/20 08:26 Famotidine 20 Mg Tab PO 20 mg BID RADHA Administration Guaifenesin 200 mg 05/14/20 16:32 05/17/20 17:32 Diabetic Tussin 200 Mg/10 Ml Udcup PO 200 mg Q4H PRN Administration Cough Tamsulosin HCl 0.4 mg 05/15/20 09:00 05/17/20 08:21 Tamsulosin Hcl 0.4 Mg Cap PO 0.4 mg DAILY RADHA Administration Zinc Sulfate 220 mg 05/15/20 09:00 05/17/20 08:21 Zinc Sulfate 220 Mg Cap PO 220 mg DAILY RADHA Administration Zolpidem Tartrate 5 mg 05/14/20 16:32 05/16/20 23:32 Zolpidem Tartrate 5 Mg Tab PO 5 mg HSPRN PRN Administration Insomnia - Exam General Appearance: NAD, awake alert Heart: RRR, no murmur, no gallops, no rubs, normal peripheral pulses Respiratory - other findings: Mild wheezing, decreased breathsounds bilateraly Gastrointestinal: soft, non-tender, non-distended, normal bowel sounds, no palpable masses, no hepatomegaly, no splenomegaly, no bruit Extremities: no cyanosis, no clubbing, no edema Neurological: cranial nerve grossly intact, normal sensation to touch, no weakness, no focal deficits, no new deficit Hosp A/P - Plan A/P: Admitted for worsening SOB & hypoxia. Chest imaging with bilateral infiltrates. COVID19 positive. # COVID19 PNA: Refers some mild subjective improvement when compared to yesterday. Remains dyspneic primarily worsened with exertion. No fever, chills, malaise. Started transiently on course of Ceftriaxone plus Azithromycin now discontinued. Remains on daily dexamethasone. Continue with inhalers. Not a candidate for Remdesivir per ID # HTN: Continue with current management. Monitor hemodynamics closely. # Anxiety: Continue with xanax PRN. # BPH: Continue with current management. DISPOSITION: Appears stable with subjective improvement. Continue with steroids, inhalers & other symptomatic management.
[2020-05-17] MEDS: Atorvastatin Calcium 10 MG TAB PO SCH (19:35)
[2020-05-17] MEDS: Zolpidem Tartrate 5 MG TAB PO PRN (20:51)
[2020-05-18] MEDS: Diabetic Tussin 200 MG/10 ML UDCUP PO PRN (06:21)
[2020-05-18] MEDS: Enoxaparin Sodium 40 MG/0.4 ML SYRINGE SC SCH (07:53)
[2020-05-18] MEDS: Dexamethasone 4 mg/ml Vial SLOW IVP SCH (07:54)
[2020-05-18] MEDS: Cholecalciferol 1,000 UNITS (25 MCG) TAB PO SCH (07:54)
[2020-05-18] MEDS: Aspirin Chewable 81 MG TAB PO SCH (07:54)
[2020-05-18] MEDS: Zinc Sulfate 220 MG CAP PO SCH (07:55)
[2020-05-18] MEDS: Benzonatate 100 MG CAP PO PRN ×2 (07:56→19:58)
[2020-05-18] MEDS: Ascorbic Acid 500 mg Chewable Tablet PO SCH (07:56)
[2020-05-18] MEDS: Tamsulosin HCl 0.4 MG CAP PO SCH (07:56)
[2020-05-18] MEDS: Famotidine 20 MG TAB PO SCH ×2 (07:56→19:54)
--- NOTE | 2020-05-18 14:31 | PRG ---
DATE OF SERVICE: 05/18/2020 SUBJECTIVE: Lying in bed with head side of the bed up. He appears comfortable, still coughing intermittently, but not as much as before. Speaking in full sentences. No chest pain. No abdominal pain or diarrhea. OBJECTIVE: VITAL SIGNS: He has been afebrile. BP 160/77. His O2 sats, when I saw him, they were like around 97 or 98 with 45 high-flow nasal cannula. LUNGS: With scattered crackles, mild to moderate right and left hemithorax. HEART: S1, S2. Regular rate. ABDOMEN: Soft. Not distended or tender. NEURO: Nonfocal. LABORATORY DATA: White cell count 12,000, hemoglobin 12. D-dimer is 0.81. Ferritin is down to 1900. CRP is markedly down to 7.45. ASSESSMENT AND DISCUSSION: Severe COVID pneumonia, hypertension, hyperlipidemia. I see some improvement. His inflammatory markers are going down and I believe he is going to continue to improve and hopefully very soon to be on nasal cannula O2 only. Job ID: [id number]
--- NOTE | 2020-05-18 17:25 | PDOC.HOSPP ---
- Subjective Encounter Date: 05/18/20 Subjective: Patient seen and examined this morning at bedside. Remains on high flow oxygen but continues to refer improvement. Tells me he is less MANCILLA. Remains on steroids. - Objective Vital Signs & Weight: Vital Signs (12 hours) Temp Pulse Resp BP Pulse Ox 05/18/20 10:13 97.9 F 58 L 24 H 161/77 H 94 L 05/18/20 08:00 94 L 05/18/20 07:42 93 L 05/18/20 05:49 95 Weight Weight 268 lb 4.841 oz I&O: 05/17/20 05/18/20 05/19/20 06:59 06:59 06:59 Intake Total 1200 1200 Output Total 550 650 Balance 650 550 Result Diagrams: 05/16/20 19:34 05/16/20 19:33 Hospitalist ROS - Review of Systems Constitutional: denies: fever, chills, sweats, weakness, malaise, other Respiratory: reports: cough, shortness of breath, SOB with excertion Cardiovascular: denies: chest pain, palpitations, orthopnea, paroxysmal noc. dyspnea, edema, light headedness, other Gastrointestinal: denies: nausea, vomiting, abdominal pain, diarrhea, const ipation, melena, hematochezia, other Neurological: denies: weakness, numbness, incoordination, change in speech, confusion, seizures, other - Medication Medications: Active Medications Generic Name Dose Route Start Last Admin Trade Name Freq PRN Reason Stop Dose Admin Acetaminophen 650 mg 05/14/20 16:32 05/14/20 20:36 Acetaminophen 325 Mg Tab PO 650 mg Q4H PRN Administration Headache/Fever/Mild Pain (1-3) Albuterol Sulfate 2 puff 05/14/20 17:32 05/16/20 01:44 Albuterol 200 Puff (6.7gm Inhaler) INH 2 puff Q4H PRN Administration SOB &/or Wheezing Ascorbic Acid 1,000 mg 05/15/20 09:00 05/18/20 07:56 Ascorbic Acid 500 Mg Chewable Tablet PO 1,000 mg DAILY RADHA Administration Aspirin 81 mg 05/15/20 09:00 05/18/20 07:54 Aspirin Chewable 81 Mg Tab PO 81 mg DAILY RADHA Administration Atorvastatin Calcium 10 mg 05/14/20 21:00 05/17/20 19:35 Atorvastatin Calcium 10 Mg Tab PO 10 mg HS RADHA Administration Benzonatate 100 mg 05/14/20 16:32 05/18/20 07:56 Benzonatate 100 Mg Cap PO 100 mg Q6H PRN Administration Cough Cholecalciferol 2,000 units 05/15/20 09:00 05/18/20 07:54 Cholecalciferol 1,000 Units (25 Mcg) Tab PO 2,000 units DAILY RADHA Administration Dexamethasone 6 mg 05/15/20 09:00 05/18/20 07:54 Dexamethasone 4 Mg/Ml Vial SLOW IVP 6 mg DAILY RADHA Administration Enoxaparin Sodium 40 mg 05/15/20 09:00 05/18/20 07:53 Enoxaparin Sodium 40 Mg/0.4 Ml Syringe SC 40 mg 0900 RADHA Administration Famotidine 20 mg 05/14/20 21:00 05/18/20 07:56 Famotidine 20 Mg Tab PO 20 mg BID RADHA Administration Guaifenesin 200 mg 05/14/20 16:32 05/18/20 06:21 Diabetic Tussin 200 Mg/10 Ml Udcup PO 200 mg Q4H PRN Administration Cough Tamsulosin HCl 0.4 mg 05/15/20 09:00 05/18/20 07:56 Tamsulosin Hcl 0.4 Mg Cap PO 0.4 mg DAILY RADHA Administration Zinc Sulfate 220 mg 05/15/20 09:00 05/18/20 07:55 Zinc Sulfate 220 Mg Cap PO 220 mg DAILY RADHA Administration Zolpidem Tartrate 5 mg 05/14/20 16:32 05/17/20 20:51 Zolpidem Tartrate 5 Mg Tab PO 5 mg HSPRN PRN Administration Insomnia - Exam General Appearance: NAD, awake alert Heart: RRR, no murmur, no gallops, no rubs, normal peripheral pulses Respiratory - other findings: Positive expiratory wheezing, decreased breath sounds b/l Gastrointestinal: soft, non-tender, non-distended, normal bowel sounds, no palpable masses, no hepatomegaly, no splenomegaly, no bruit Hosp A/P - Plan A/P: Admitted for worsening SOB & hypoxia. Chest imaging with bilateral infiltrates. COVID19 positive. # COVID19 PNA: Continues to refer slow improvement. He is certainly not doing worse from prior days. Remains dyspneic on exertion but refers its "easier to move." No fever, chills, malaise. Started transiently on course of Ceftriaxone plus Azithromycin now discontinued. Remains on daily dexamethasone. Continue with inhalers. Not a candidate for Remdesivir per ID # HTN: Continue with current management. Monitor hemodynamics closely. # Anxiety: Continue with xanax PRN. # BPH: Continue with current management. DISPOSITION: Appears stable with subjective improvement. Continue with steroids, inhalers & other symptomatic management.
[2020-05-18] MEDS: Atorvastatin Calcium 10 MG TAB PO SCH (19:54)
[2020-05-18] MEDS: Zolpidem Tartrate 5 MG TAB PO PRN (19:58)
[2020-05-18 22:52] LABS: Hemoglobin 12.4 g/dL (14.0-18.0); Mean Corpuscular HGB CONC 33.7 g/dL (32.0-36.0); Mean Corpuscular Hemoglobin 34.3 pg (27.0-31.0); Mean Platelet Volume 8.4 fL (7.4-10.4); Platelet Count 300 thou/uL (130-400); RBC Distribution Width 11.5 % (11.5-14.5); Red Blood Cell (RBC) Count 3.62 mill/uL (4.70-6.10); White Blood Cell (WBC) Count 15.9 thou/uL (4.8-10.8)
[2020-05-18 22:59] LABS: Anion Gap 12 mmol/L (10-20); BUN (Urea Nitrogen) 16 mg/dL (8.4-25.7); Calc. Creatinine Clearance 171 mL/min (70-130); Calcium 8.1 mg/dL (7.8-10.44); Carbon Dioxide 26 mmol/L (23-31); Chloride 101 mmol/L (98-107); Glucose 109 mg/dL (80-115); Magnesium 1.7 mg/dL (1.6-2.6); Potassium 3.7 mmol/L (3.5-5.1); Sodium 135 mmol/L (136-145)
[2020-05-18 23:11] LABS: Band 3 % (5-11); Lymphocytes 13 % (21-51); MDiff Complete? YES; Monocytes 6 % (0-10); Neutrophil 78 % (42-75)
[2020-05-19] MEDS: Diabetic Tussin 200 MG/10 ML UDCUP PO PRN ×2 (02:20→21:40)
[2020-05-19] MEDS: Benzonatate 100 MG CAP PO PRN ×2 (04:24→21:40)
[2020-05-19] MEDS: Zinc Sulfate 220 MG CAP PO SCH (08:29)
[2020-05-19] MEDS: Ascorbic Acid 500 mg Chewable Tablet PO SCH (08:29)
[2020-05-19] MEDS: Aspirin Chewable 81 MG TAB PO SCH (08:29)
[2020-05-19] MEDS: Famotidine 20 MG TAB PO SCH ×2 (08:29→21:40)
[2020-05-19] MEDS: Enoxaparin Sodium 40 MG/0.4 ML SYRINGE SC SCH (08:30)
[2020-05-19] MEDS: Tamsulosin HCl 0.4 MG CAP PO SCH (08:30)
[2020-05-19] MEDS: Cholecalciferol 1,000 UNITS (25 MCG) TAB PO SCH (08:30)
[2020-05-19] MEDS: Dexamethasone 4 mg/ml Vial SLOW IVP SCH (08:31)
--- NOTE | 2020-05-19 08:41 | PDOC.HOSPP ---
- Subjective Subjective: Seen and examined at bedside this morning. Tells me that last night he was somewhat restless which is new. Patient remains stable although still requiring high flow oxygen. His exam has not changed much over the last couple of day. He remains with very diminished breath sounds throughout. No fever or chills. WBC of 15.9 slightly elevated from last couple of days (11.7, 12.2). - Objective Vital Signs & Weight: Vital Signs (12 hours) Temp Pulse Resp BP Pulse Ox 05/19/20 04:24 97.7 F 52 L 22 H 152/78 H 94 L 05/19/20 00:20 97.9 F 56 L 20 143/82 H 92 L Weight Weight 268 lb 4.841 oz I&O: 05/18/20 05/19/20 05/20/20 06:59 06:59 06:59 Intake Total 1200 Output Total 650 Balance 550 Result Diagrams: 05/18/20 22:25 05/18/20 22:25 Hospitalist ROS - Review of Systems Constitutional: denies: fever, chills, sweats, weakness, malaise, other Respiratory: reports: cough, dry, shortness of breath, SOB with excertion, wheez ing Cardiovascular: denies: chest pain, palpitations, orthopnea, paroxysmal noc. dyspnea, edema, light headedness, other Neurological: denies: weakness, numbness, incoordination, change in speech, confusion, seizures, other - Medication Medications: Active Medications Generic Name Dose Route Start Last Admin Trade Name Freq PRN Reason Stop Dose Admin Acetaminophen 650 mg 05/14/20 16:32 05/14/20 20:36 Acetaminophen 325 Mg Tab PO 650 mg Q4H PRN Administration Headache/Fever/Mild Pain (1-3) Hydrocodone Bitart/Acetaminophen 1 tab 05/14/20 16:32 05/19/20 06:48 Hydrocodone/Acetaminophen 5/325 Mg Tablet PO 1 tab Q4H PRN Administration Moderate Pain (4-6) Albuterol Sulfate 2 puff 05/14/20 17:32 05/16/20 01:44 Albuterol 200 Puff (6.7gm Inhaler) INH 2 puff Q4H PRN Administration SOB &/or Wheezing Ascorbic Acid 1,000 mg 05/15/20 09:00 05/19/20 08:29 Ascorbic Acid 500 Mg Chewable Tablet PO 1,000 mg DAILY RADHA Administration Aspirin 81 mg 05/15/20 09:00 05/19/20 08:29 Aspirin Chewable 81 Mg Tab PO 81 mg DAILY RADHA Administration Atorvastatin Calcium 10 mg 05/14/20 21:00 05/18/20 19:54 Atorvastatin Calcium 10 Mg Tab PO 10 mg HS RADHA Administration Benzonatate 100 mg 05/14/20 16:32 05/19/20 04:24 Benzonatate 100 Mg Cap PO 100 mg Q6H PRN Administration Cough Cholecalciferol 2,000 units 05/15/20 09:00 05/19/20 08:30 Cholecalciferol 1,000 Units (25 Mcg) Tab PO 2,000 units DAILY RADHA Administration Dexamethasone 6 mg 05/15/20 09:00 05/19/20 08:31 Dexamethasone 4 Mg/Ml Vial SLOW IVP 6 mg DAILY RADHA Administration Enoxaparin Sodium 40 mg 05/15/20 09:00 05/19/20 08:30 Enoxaparin Sodium 40 Mg/0.4 Ml Syringe SC 40 mg 09 RADHA Administration Famotidine 20 mg 05/14/20 21:00 05/19/20 08:29 Famotidine 20 Mg Tab PO 20 mg BID RADHA Administration Guaifenesin 200 mg 05/14/20 16:32 05/19/20 02:20 Diabetic Tussin 200 Mg/10 Ml Udcup PO 200 mg Q4H PRN Administration Cough Tamsulosin HCl 0.4 mg 05/15/20 09:00 05/19/20 08:30 Tamsulosin Hcl 0.4 Mg Cap PO 0.4 mg DAILY RADHA Administration Zinc Sulfate 220 mg 05/15/20 09:00 05/19/20 08:29 Zinc Sulfate 220 Mg Cap PO 220 mg DAILY RADHA Administration Zolpidem Tartrate 5 mg 05/14/20 16:32 05/18/20 19:58 Zolpidem Tartrate 5 Mg Tab PO 5 mg HSPRN PRN Administration Insomnia - Exam General Appearance: NAD, awake alert Eye: PERRL, anicteric sclera ENT: normocephalic atraumatic, no oropharyngeal lesions, moist mucosa Heart: RRR, no murmur, no gallops, no rubs, normal peripheral pulses Respiratory - other findings: decreased breath sounds througout, some expiratory wheezing Gastrointestinal: soft, non-tender, non-distended, normal bowel sounds, no palpable masses, no hepatomegaly, no splenomegaly, no bruit Neurological: cranial nerve grossly intact, normal sensation to touch, no weakness, no focal deficits, no new deficit Hosp A/P - Plan A/P: Admitted for worsening SOB & hypoxia. Chest imaging with bilateral infiltrates. COVID19 positive. # COVID19 PNA: Overall he appears very stable. No distress on exam. Speaks in full sentences without need to pause during conversation. Still very diminished with some expiratory wheezing. No fever, chills, malaise. Leukocytosis slightly increased possibly in part due to steroids. Inflammatory markers is improved. Remains on daily dexamethasone. Continue with inhalers. Not a candidate for Remdesivir per ID # HTN: Continue with current management. Monitor hemodynamics closely. # BPH: Continue with current management. # Anxiety: Continue with xanax PRN. DISPOSITION: Continue with current management of steroids, inhalers & other symptomatic management.
[2020-05-19 16:57] LABS: #Eosinphils 0.3 thou/uL (0.0-0.7); #Monocytes 1.1 thou/uL (0.11-0.59); #Neutrophils 13.4 thou/uL (1.40-6.50); %Basophils 0.1 % (0.0-1.0); %Eosinophils 2.1 % (0.0-10.0); %Monocytes 6.6 % (0.0-10.0); %Neutrophils 79.3 % (42.0-75.0); Hemoglobin 13.1 g/dL (14.0-18.0); Mean Corpuscular HGB CONC 32.8 g/dL (32.0-36.0); Mean Corpuscular Hemoglobin 33.3 pg (27.0-31.0); Mean Platelet Volume 8.2 fL (7.4-10.4); Platelet Count 358 thou/uL (130-400); RBC Distribution Width 11.7 % (11.5-14.5); Red Blood Cell (RBC) Count 3.92 mill/uL (4.70-6.10); White Blood Cell (WBC) Count 16.9 thou/uL (4.8-10.8)
[2020-05-19 17:35] LABS: Anion Gap 12 mmol/L (10-20); BUN (Urea Nitrogen) 14 mg/dL (8.4-25.7); Calc. Creatinine Clearance 165 mL/min (70-130); Calcium 8.2 mg/dL (7.8-10.44); Carbon Dioxide 29 mmol/L (23-31); Chloride 100 mmol/L (98-107); Glucose 92 mg/dL (80-115); Potassium 3.4 mmol/L (3.5-5.1); Sodium 138 mmol/L (136-145)
--- NOTE | 2020-05-19 19:18 | PRG ---
DATE OF SERVICE: 05/19/2020 SUBJECTIVE: When I went to see him, he was a little bit more tachypneic than before and he was having more dyspnea to go to the restroom and is not having chest pain or abdominal pain. No diarrhea. He is still on 45 L high-flow nasal cannula O2. When I saw him, he was saturating at 94% to 95% max and would desaturate quickly to the 90s and upper 80s and then take a little longer to go back up. OBJECTIVE: LUNGS: Have bilateral inspiratory crackles as before, maybe a little more prominent. HEART: S1 and S2. Regular rate. ABDOMEN: Soft, not distended. EXTREMITIES: Moves all extremities equally. LABORATORY DATA: The white cell count is 16.9 and C-reactive protein was down to 6.95 from 25. The ferritin was down to 1900. The D-dimer is down to 0.81. ASSESSMENT AND DISCUSSION: Severe COVID pneumonia and hypertension. Today, he is a little bit worse. We can never predict what is going to happen with this disease. No grounds for changing his oxygen supplementation intensity at this point in time, but let us hope that tomorrow he will be better. Job ID: [id number]
[2020-05-19] MEDS: Atorvastatin Calcium 10 MG TAB PO SCH (21:40)
[2020-05-19] MEDS: Zolpidem Tartrate 5 MG TAB PO PRN (21:40)
[2020-05-19] MEDS: Acetaminophen 325 MG TAB PO PRN (21:53)
[2020-05-20] MEDS: Acetaminophen 325 MG TAB PO PRN (04:59)
[2020-05-20] MEDS: Benzonatate 100 MG CAP PO PRN ×2 (04:59→20:26)
[2020-05-20] MEDS: Diabetic Tussin 200 MG/10 ML UDCUP PO PRN ×2 (04:59→20:25)
[2020-05-20 06:39] LABS: #Eosinphils 0.3 thou/uL (0.0-0.7); #Lymphocytes 1.5 thou/uL (1.20-3.40); #Neutrophils 12.9 thou/uL (1.40-6.50); %Basophils 0.1 % (0.0-1.0); %Eosinophils 1.9 % (0.0-10.0); %Lymphocytes 9.5 % (21.0-51.0); %Monocytes 6.1 % (0.0-10.0); %Neutrophils 82.4 % (42.0-75.0); Hemoglobin 12.5 g/dL (14.0-18.0); Mean Corpuscular HGB CONC 33.9 g/dL (32.0-36.0); Mean Corpuscular Hemoglobin 34.3 pg (27.0-31.0); Mean Platelet Volume 10.4 fL (7.4-10.4); Platelet Count 337 thou/uL (130-400); RBC Distribution Width 11.8 % (11.5-14.5); Red Blood Cell (RBC) Count 3.63 mill/uL (4.70-6.10); White Blood Cell (WBC) Count 15.6 thou/uL (4.8-10.8)
[2020-05-20 06:45] LABS: Anion Gap 14 mmol/L (10-20); BUN (Urea Nitrogen) 11 mg/dL (8.4-25.7); Calc. Creatinine Clearance 199 mL/min (70-130); Calcium 7.9 mg/dL (7.8-10.44); Carbon Dioxide 23 mmol/L (23-31); Chloride 101 mmol/L (98-107); Glucose 93 mg/dL (80-115); Potassium 3.7 mmol/L (3.5-5.1); Sodium 134 mmol/L (136-145)
[2020-05-20] MEDS: Enoxaparin Sodium 40 MG/0.4 ML SYRINGE SC SCH (07:54)
[2020-05-20] MEDS: Aspirin Chewable 81 MG TAB PO SCH (07:54)
[2020-05-20] MEDS: Cholecalciferol 1,000 UNITS (25 MCG) TAB PO SCH (07:54)
[2020-05-20] MEDS: Ascorbic Acid 500 mg Chewable Tablet PO SCH (07:55)
[2020-05-20] MEDS: Zinc Sulfate 220 MG CAP PO SCH (07:55)
[2020-05-20] MEDS: Famotidine 20 MG TAB PO SCH ×2 (07:55→20:25)
[2020-05-20] MEDS: Tamsulosin HCl 0.4 MG CAP PO SCH (07:55)
[2020-05-20] MEDS: Dexamethasone 4 mg/ml Vial SLOW IVP SCH (07:55)
--- NOTE | 2020-05-20 09:06 | RAD ---
CHEST 1 VIEW: HISTORY: Tachypnea and shortness of breath. Followup evaluation. FINDINGS: Extensive bilateral alveolar, interstitial, and ground-glass opacity changes becoming more focally co nfluent in several areas in the upper and lower portions of right and left lungs when compared to the prior study with decreased inspiration. IMPRESSION: Extensive bilateral pneumonia becoming more focally confluent bilaterally concerning for worsening CO VID pneumonia. Continued short-term followup. POS: RRE
[2020-05-20 11:37] LABS: Actual Bicarbonate (HCO3a) 25.9 mEq/L (22-28); Base Excess (BEa) 1.9 mEq/L (-2.0 to +3.0); CO2 Tension 38.7 mmHg (35.0-45.0); Calcium, Ionized (arterial) 1.18 mmol/L (1.12-1.30); Carboxyhemoglobin (COHb) 0.7 gm% (0.0-3.0); Hemoglobin (Hb) 13.8 g/dL (14.0-18.0); O2 Tension (PaO2), arterial 62.4 mmHg (> 80.0); pH, Arterial 7.44 (7.35-7.45)
[2020-05-20 11:39] LABS: ALV-art Gradient 245.725 mmHg (0-20); Puncture Site RBA
--- NOTE | 2020-05-20 15:01 | PRG ---
DATE OF SERVICE: 05/20/2020 SUBJECTIVE: He looks a little better today, still at rest, but looks more comfortable at rest and I saw him yesterday. He is able to eat. Able to talk better than yesterday. He feels more comfortable during activities. OBJECTIVE: VITAL SIGNS: His temperature is normal, BP 150/90, heart rate 69, respiratory rate 20, and he was saturating at 96 to 97 with 45 high-flow oxygen when I saw him, so that is better than before. LUNGS: With quite prominent inspiratory crackles, particularly on the right side, but also on the left. HEART: S1 and S2. Regular rate. ABDOMEN: Soft, not distended. EXTREMITIES: Moves all extremities equally. LABORATORY DATA: Blood gas from today shows pH 7.44, pCO2 of 38, and pO2 of 62. White cell count 15.6, hemoglobin 12.5, and platelets 337. Creatinine 0.62. The x-ray is a little bit worse than before. ASSESSMENT AND DISCUSSION: 1. Severe COVID pneumonia. 2. Hypertension. 3. Hyperlipidemia. The patient has reached the peak I hope of his inflammatory activity and is still holding a pretty good O2 saturation at rest, still on high-flow. The C-reactive was not repeated today. Today is the 15th day of illness and hopefully he is reaching the peak of activity, so he can hold this level for the next few days without having to be intubated and then go into the recovery phase. Job ID: [id number]
--- NOTE | 2020-05-20 15:42 | PDOC.HOSPP ---
- Subjective Encounter Date: 05/20/20 Subjective: Patient seen and examined at bedside. Remains hemodynamically stable maitaining O2 requirements however he does appear somewhat more tired over the last couple of days. MANCILLA persist but per patient this is not worsening. No fever or chills. Cough remains non productive. Chest x-ray this morning continues to show extensive bilateral PNA concerning for worsening PNA. Follow up ABG also obtained which shows acceptable parameters. Above was discussed with patient's daughter for update. - Objective Vital Signs & Weight: Vital Signs (12 hours) Temp Pulse Resp BP Pulse Ox 05/20/20 08:00 93 L 05/20/20 07:30 98.3 F 69 20 150/90 H 93 L 05/20/20 05:20 98.3 F 64 22 H 146/79 H 94 L Weight Weight 268 lb 4.841 oz I&O: 05/19/20 05/20/20 05/21/20 06:59 06:59 06:59 Intake Total 960 600 Balance 960 600 Result Diagrams: 05/20/20 06:13 05/20/20 06:13 Hospitalist ROS - Review of Systems Constitutional: reports: weakness, malaise. denies: fever, chills, sweats, other Respiratory: reports: cough, dry, shortness of breath, SOB with excertion. denies: pleuritic pain, sputum, wheezing Cardiovascular: denies: chest pain, palpitations, orthopnea, paroxysmal noc. dyspnea, edema, light headedness, other Gastrointestinal: denies: nausea, vomiting, abdominal pain, diarrhea, constipation, melena, hematochezia, other Genitourinary: denies: dysuria, frequency, incontinence, hematuria, retention, other - Medication Medications: Active Medications Generic Name Dose Route Start Last Admin Trade Name Freq PRN Reason Stop Dose Admin Acetaminophen 650 mg 05/14/20 16:32 05/20/20 04:59 Acetaminophen 325 Mg Tab PO 650 mg Q4H PRN Administration Headache/Fever/Mild Pain (1-3) Hydrocodone Bitart/Acetaminophen 1 tab 05/14/20 16:32 05/19/20 06:48 Hydrocodone/Acetaminophen 5/325 Mg Tablet PO 1 tab Q4H PRN Administration Moderate Pain (4-6) Albuterol Sulfate 2 puff 05/14/20 17:32 05/16/20 01:44 Albuterol 200 Puff (6.7gm Inhaler) INH 2 puff Q4H PRN Administration SOB &/or Wheezing Ascorbic Acid 1,000 mg 05/15/20 09:00 05/20/20 07:55 Ascorbic Acid 500 Mg Chewable Tablet PO 1,000 mg DAILY RADHA Administration Aspirin 81 mg 05/15/20 09:00 05/20/20 07:54 Aspirin Chewable 81 Mg Tab PO 81 mg DAILY RADHA Administration Atorvastatin Calcium 10 mg 05/14/20 21:00 05/19/20 21:40 Atorvastatin Calcium 10 Mg Tab PO 10 mg HS RADHA Administration Benzonatate 100 mg 05/14/20 16:32 05/20/20 04:59 Benzonatate 100 Mg Cap PO 100 mg Q6H PRN Administration Cough Cholecalciferol 2,000 units 05/15/20 09:00 05/20/20 07:54 Cholecalciferol 1,000 Units (25 Mcg) Tab PO 2,000 units DAILY RADHA Administration Dexamethasone 6 mg 05/15/20 09:00 05/20/20 07:55 Dexamethasone 4 Mg/Ml Vial SLOW IVP 6 mg DAILY RADHA Administration Enoxaparin Sodium 40 mg 05/15/20 09:00 05/20/20 07:54 Enoxaparin Sodium 40 Mg/0.4 Ml Syringe SC 40 mg 0900 RADHA Administration Famotidine 20 mg 05/14/20 21:00 05/20/20 07:55 Famotidine 20 Mg Tab PO 20 mg BID RADHA Administration Guaifenesin 200 mg 05/14/20 16:32 05/20/20 04:59 Diabetic Tussin 200 Mg/10 Ml Udcup PO 200 mg Q4H PRN Administration Cough Tamsulosin HCl 0.4 mg 05/15/20 09:00 05/20/20 07:55 Tamsulosin Hcl 0.4 Mg Cap PO 0.4 mg DAILY RADHA Administration Zinc Sulfate 220 mg 05/15/20 09:00 05/20/20 07:55 Zinc Sulfate 220 Mg Cap PO 220 mg DAILY RADHA Administration Zolpidem Tartrate 5 mg 05/14/20 16:32 05/19/20 21:40 Zolpidem Tartrate 5 Mg Tab PO 5 mg HSPRN PRN Administration Insomnia - Exam General Appearance: NAD, awake alert General - other findings: Appears tired Heart: RRR, no murmur, no gallops, no rubs, normal peripheral pulses Respiratory - other findings: Diminished breath sounds b/l Gastrointestinal: soft, non-tender, non-distended, normal bowel sounds, no palpable masses, no hepatomegaly, no splenomegaly, no bruit Neurological: cranial nerve grossly intact, normal sensation to touch, no weakness, no focal deficits, no new deficit Psychiatric: oriented to person Hosp A/P - Plan A/P: Admitted for worsening SOB & hypoxia. Chest imaging with bilateral infiltrates. COVID19 positive. # COVID19 PNA: Overall not much change from last several days. He does appear more tired but appears to be maintaining hemodynamics. Oxygen requirements not truly changing. X-ray suggests possible worsening but ABG remains stable. No distress on exam. Speaks in full sentences without need to pause during conversation. No fever, chills, malaise. Inflammatory markers is improved. Remains on daily dexamethasone. Continue with inhalers. Not a candidate for Remdesivir per ID # HTN: Continue with current management. Monitor hemodynamics closely. # BPH: Continue with current management. # Anxiety: Continue with xanax PRN. DISPOSITION: Continue with current management of steroids, inhalers & other symptomatic management.
[2020-05-20] MEDS: Zolpidem Tartrate 5 MG TAB PO PRN (20:25)
[2020-05-20] MEDS: Atorvastatin Calcium 10 MG TAB PO SCH (20:26)
[2020-05-21] MEDS: Dexamethasone 4 mg/ml Vial SLOW IVP SCH (08:00)
[2020-05-21] MEDS: Famotidine 20 MG TAB PO SCH ×2 (08:00→21:21)
[2020-05-21] MEDS: Enoxaparin Sodium 40 MG/0.4 ML SYRINGE SC SCH (08:00)
[2020-05-21] MEDS: Ascorbic Acid 500 mg Chewable Tablet PO SCH (08:01)
[2020-05-21] MEDS: Cholecalciferol 1,000 UNITS (25 MCG) TAB PO SCH (08:01)
[2020-05-21] MEDS: Tamsulosin HCl 0.4 MG CAP PO SCH (08:01)
[2020-05-21] MEDS: Zinc Sulfate 220 MG CAP PO SCH (08:01)
[2020-05-21] MEDS: Aspirin Chewable 81 MG TAB PO SCH (08:02)
--- NOTE | 2020-05-21 14:18 | PDOC.HOSPP ---
- Subjective Encounter Date: 05/21/20 Encounter Time: 08:30 Subjective: breathing better, is on high flow says he can ambulate to restroom and back wo O2 is eating well - Objective Vital Signs & Weight: Vital Signs (12 hours) Temp Pulse Resp BP Pulse Ox 05/21/20 08:00 98.6 F 72 20 156/78 H 94 L 05/21/20 07:32 94 L Weight Weight 268 lb 4.841 oz I&O: 05/20/20 05/21/20 05/22/20 06:59 06:59 06:59 Intake Total 960 600 480 Balance 960 600 480 Result Diagrams: 05/20/20 06:13 05/20/20 06:13 Hospitalist ROS - Medication Medications: Active Medications Generic Name Dose Route Start Last Admin Trade Name Freq PRN Reason Stop Dose Admin Acetaminophen 650 mg 05/14/20 16:32 05/20/20 04:59 Acetaminophen 325 Mg Tab PO 650 mg Q4H PRN Administration Headache/Fever/Mild Pain (1-3) Hydrocodone Bitart/Acetaminophen 1 tab 05/14/20 16:32 05/19/20 06:48 Hydrocodone/Acetaminophen 5/325 Mg Tablet PO 1 tab Q4H PRN Administration Moderate Pain (4-6) Albuterol Sulfate 2 puff 05/14/20 17:32 05/16/20 01:44 Albuterol 200 Puff (6.7gm Inhaler) INH 2 puff Q4H PRN Administration SOB &/or Wheezing Ascorbic Acid 1,000 mg 05/15/20 09:00 05/21/20 08:01 Ascorbic Acid 500 Mg Chewable Tablet PO 1,000 mg DAILY RADHA Administration Aspirin 81 mg 05/15/20 09:00 05/21/20 08:02 Aspirin Chewable 81 Mg Tab PO 81 mg DAILY RADHA Administration Atorvastatin Calcium 10 mg 05/14/20 21:00 05/20/20 20:26 Atorvastatin Calcium 10 Mg Tab PO 10 mg HS RADHA Administration Benzonatate 100 mg 05/14/20 16:32 05/20/20 20:26 Benzonatate 100 Mg Cap PO 100 mg Q6H PRN Administration Cough Cholecalciferol 2,000 units 05/15/20 09:00 05/21/20 08:01 Cholecalciferol 1,000 Units (25 Mcg) Tab PO 2,000 units DAILY RADHA Administration Dexamethasone 6 mg 05/15/20 09:00 05/21/20 08:00 Dexamethasone 4 Mg/Ml Vial SLOW IVP 6 mg DAILY RADHA Administration Enoxaparin Sodium 40 mg 05/15/20 09:00 05/21/20 08:00 Enoxaparin Sodium 40 Mg/0.4 Ml Syringe SC 40 mg 0900 RADHA Administration Famotidine 20 mg 05/14/20 21:00 05/21/20 08:00 Famotidine 20 Mg Tab PO 20 mg BID RADHA Administration Guaifenesin 200 mg 05/14/20 16:32 05/20/20 20:25 Diabetic Tussin 200 Mg/10 Ml Udcup PO 200 mg Q4H PRN Administration Cough Lorazepam 0.5 mg 05/15/20 00:53 05/21/20 02:28 Lorazepam 2 Mg/Ml Vial SLOW IVP 0.5 mg Q6H PRN Administration Anxiety/Agitation Tamsulosin HCl 0.4 mg 05/15/20 09:00 05/21/20 08:01 Tamsulosin Hcl 0.4 Mg Cap PO 0.4 mg DAILY RADHA Administration Zinc Sulfate 220 mg 05/15/20 09:00 05/21/20 08:01 Zinc Sulfate 220 Mg Cap PO 220 mg DAILY RADHA Administration Zolpidem Tartrate 5 mg 05/14/20 16:32 05/20/20 20:25 Zolpidem Tartrate 5 Mg Tab PO 5 mg HSPRN PRN Administration Insomnia - Exam General Appearance: awake alert Eye: PERRL, anicteric sclera ENT: no oropharyngeal lesions, moist mucosa Neck: supple, no JVD Heart: RRR, no murmur Respiratory: no wheezes, rales, rhonchi Gastrointestinal: soft, non-tender, non-distended, normal bowel sounds Extremities: no cyanosis, no edema Neurological: cranial nerve grossly intact, no focal deficits Psychiatric: normal affect, A&O x 3 Hosp A/P (1) Acute respiratory failure due to COVID-19 Code(s): U07.1 - COVID-19; J96.00 - ACUTE RESPIRATORY FAILURE, UNSP W HYPOXIA OR HYPERCAPNIA Status: Acute (2) Pneumonia due to 2019 novel coronavirus Code(s): U07.1 - COVID-19; J12.89 - OTHER VIRAL PNEUMONIA Status: Acute (3) Benign enlargement of prostate Code(s): N40.0 - BENIGN PROSTATIC HYPERPLASIA WITHOUT LOWER URINRY TRACT SYMP Status: Chronic Qualifiers: Lower urinary tract symptom presence: symptoms absent Qualified Code(s): N40.0 - Benign prostatic hyperplasia without lower urinary tract symptoms (4) Dyslipidemia Code(s): E78.5 - HYPERLIPIDEMIA, UNSPECIFIED Status: Chronic (5) Macrocytic anemia Code(s): D53.9 - NUTRITIONAL ANEMIA, UNSPECIFIED Status: Chronic (6) Obesity (BMI 30-39.9) Code(s): E66.9 - OBESITY, UNSPECIFIED Status: Chronic - Plan is on high flow O2, dexamethasone, vit C, zinc, aspirin, lipitor, flomax hemostable wean high flow as tolerated encouraged to mobilize as tolerated and exercise on bed PT ovi d/w daughter Claire and gave an update
[2020-05-21] MEDS: Diabetic Tussin 200 MG/10 ML UDCUP PO PRN (21:21)
[2020-05-21] MEDS: Benzonatate 100 MG CAP PO PRN (21:22)
[2020-05-21] MEDS: Zolpidem Tartrate 5 MG TAB PO PRN (21:22)
[2020-05-21] MEDS: Atorvastatin Calcium 10 MG TAB PO SCH (21:22)
[2020-05-22] MEDS: Zinc Sulfate 220 MG CAP PO SCH (10:01)
[2020-05-22] MEDS: Famotidine 20 MG TAB PO SCH ×2 (10:01→20:55)
[2020-05-22] MEDS: Cholecalciferol 1,000 UNITS (25 MCG) TAB PO SCH (10:02)
[2020-05-22] MEDS: Tamsulosin HCl 0.4 MG CAP PO SCH (10:02)
[2020-05-22] MEDS: Ascorbic Acid 500 mg Chewable Tablet PO SCH (10:02)
[2020-05-22] MEDS: Aspirin Chewable 81 MG TAB PO SCH (10:03)
[2020-05-22] MEDS: Dexamethasone 4 mg/ml Vial SLOW IVP SCH (10:03)
[2020-05-22] MEDS: Enoxaparin Sodium 40 MG/0.4 ML SYRINGE SC SCH (10:03)
--- NOTE | 2020-05-22 12:33 | PDOC.HOSPP ---
- Subjective Encounter Date: 05/22/20 Encounter Time: 08:50 Subjective: is on high flow O2, feels well is ambulating in room to bathroom eating well - Objective Vital Signs & Weight: Vital Signs (12 hours) Temp Pulse Resp BP Pulse Ox 05/22/20 08:00 97.9 F 62 20 161/83 H 92 L Weight Weight 268 lb 4.841 oz I&O: 05/21/20 05/22/20 05/23/20 06:59 06:59 06:59 Intake Total 600 720 240 Output Total 950 Balance 600 720 -710 Result Diagrams: 05/20/20 06:13 05/20/20 06:13 Hospitalist ROS - Medication Medications: Active Medications Generic Name Dose Route Start Last Admin Trade Name Freq PRN Reason Stop Dose Admin Acetaminophen 650 mg 05/14/20 16:32 05/20/20 04:59 Acetaminophen 325 Mg Tab PO 650 mg Q4H PRN Administration Headache/Fever/Mild Pain (1-3) Hydrocodone Bitart/Acetaminophen 1 tab 05/14/20 16:32 05/19/20 06:48 Hydrocodone/Acetaminophen 5/325 Mg Tablet PO 1 tab Q4H PRN Administration Moderate Pain (4-6) Albuterol Sulfate 2 puff 05/14/20 17:32 05/16/20 01:44 Albuterol 200 Puff (6.7gm Inhaler) INH 2 puff Q4H PRN Administration SOB &/or Wheezing Ascorbic Acid 1,000 mg 05/15/20 09:00 05/22/20 10:02 Ascorbic Acid 500 Mg Chewable Tablet PO 1,000 mg DAILY RADHA Administration Aspirin 81 mg 05/15/20 09:00 05/22/20 10:03 Aspirin Chewable 81 Mg Tab PO 81 mg DAILY RADHA Administration Atorvastatin Calcium 10 mg 05/14/20 21:00 05/21/20 21:22 Atorvastatin Calcium 10 Mg Tab PO 10 mg HS RADHA Administration Benzonatate 100 mg 05/14/20 16:32 05/21/20 21:22 Benzonatate 100 Mg Cap PO 100 mg Q6H PRN Administration Cough Cholecalciferol 2,000 units 05/15/20 09:00 05/22/20 10:02 Cholecalciferol 1,000 Units (25 Mcg) Tab PO 2,000 units DAILY RADHA Administration Dexamethasone 6 mg 05/15/20 09:00 05/22/20 10:03 Dexamethasone 4 Mg/Ml Vial SLOW IVP 6 mg DAILY RADHA Administration Enoxaparin Sodium 40 mg 05/15/20 09:00 05/22/20 10:03 Enoxaparin Sodium 40 Mg/0.4 Ml Syringe SC 40 mg 0900 RADHA Administration Famotidine 20 mg 05/14/20 21:00 05/22/20 10:01 Famotidine 20 Mg Tab PO 20 mg BID RADHA Administration Guaifenesin 200 mg 05/14/20 16:32 05/21/20 21:21 Diabetic Tussin 200 Mg/10 Ml Udcup PO 200 mg Q4H PRN Administration Cough Lorazepam 0.5 mg 05/15/20 00:53 05/21/20 02:28 Lorazepam 2 Mg/Ml Vial SLOW IVP 0.5 mg Q6H PRN Administration Anxiety/Agitation Tamsulosin HCl 0.4 mg 05/15/20 09:00 05/22/20 10:02 Tamsulosin Hcl 0.4 Mg Cap PO 0.4 mg DAILY RADHA Administration Zinc Sulfate 220 mg 05/15/20 09:00 05/22/20 10:01 Zinc Sulfate 220 Mg Cap PO 220 mg DAILY RADHA Administration Zolpidem Tartrate 5 mg 05/14/20 16:32 05/21/20 21:22 Zolpidem Tartrate 5 Mg Tab PO 5 mg HSPRN PRN Administration Insomnia - Exam General Appearance: awake alert Eye: PERRL, anicteric sclera ENT: no oropharyngeal lesions, moist mucosa Neck: supple, no JVD Heart: RRR, no murmur Respiratory: no wheezes, rales, rhonchi Gastrointestinal: soft, non-tender, non-distended, normal bowel sounds Extremities: no cyanosis, no edema Neurological: cranial nerve grossly intact, no focal deficits Psychiatric: A&O x 3 Hosp A/P (1) Acute respiratory failure due to COVID-19 Code(s): U07.1 - COVID-19; J96.00 - ACUTE RESPIRATORY FAILURE, UNSP W HYPOXIA OR HYPERCAPNIA Status: Acute (2) Pneumonia due to 2019 novel coronavirus Code(s): U07.1 - COVID-19; J12.89 - OTHER VIRAL PNEUMONIA Status: Acute (3) Benign enlargement of prostate Code(s): N40.0 - BENIGN PROSTATIC HYPERPLASIA WITHOUT LOWER URINRY TRACT SYMP Status: Chronic Qualifiers: Lower urinary tract symptom presence: symptoms absent Qualified Code(s): N40.0 - Benign prostatic hyperplasia without lower urinary tract symptoms (4) Dyslipidemia Code(s): E78.5 - HYPERLIPIDEMIA, UNSPECIFIED Status: Chronic (5) Macrocytic anemia Code(s): D53.9 - NUTRITIONAL ANEMIA, UNSPECIFIED Status: Chronic (6) Obesity (BMI 30-39.9) Code(s): E66.9 - OBESITY, UNSPECIFIED Status: Chronic - Plan is on high flow O2, dexamethasone, vit C, zinc, aspirin, lipitor, flomax hemostable wean high flow as tolerated encouraged to mobilize as tolerated and exercise on bed PT ovi d/w daughter and gave an update (05/21)
--- NOTE | 2020-05-22 16:18 | PRG ---
DATE OF SERVICE: 05/22/2020 SUBJECTIVE: He still in bed. He is awake and alert, appears comfortable, little bit tachypneic. He is less dyspneic when he does effort. Some cough. No chest pain. No abdominal pain. No diarrhea. OBJECTIVE: VITAL SIGNS: Afebrile. Actually when I went into the room, he was saturating at 98%, 99%, sometimes 100% on 40 L of high-flow nasal cannula. LUNGS: With scattered inspiratory crackles, throughout both lung [place], but in discrete areas, mostly in the right upper lung and the left mid lung. HEART: S1-S2, regular rate. ABDOMEN: Soft, not distended. NEURO: Nonfocal. LABORATORY DATA: Laboratories have not been repeated. I think that have pending labs for tomorrow and is currently still on Decadron and p.r.n. medications. ASSESSMENT AND DISCUSSION: Severe COVID pneumonia, hypertension, hyperlipidemia, looks like we are at the 18th day of illness onset and now I think he is going to experience progressive resolution in inflammatory process and what we have now is the aftermath and resolution. I foresee a decrease in the O2 requirements going forward and hopefully be on nasal cannula shortly. Job ID: [id number] [facility]
[2020-05-22] MEDS: Diabetic Tussin 200 MG/10 ML UDCUP PO PRN ×2 (16:30→20:55)
[2020-05-22] MEDS: Benzonatate 100 MG CAP PO PRN (20:55)
[2020-05-22] MEDS: Zolpidem Tartrate 5 MG TAB PO PRN (20:55)
[2020-05-22] MEDS: Atorvastatin Calcium 10 MG TAB PO SCH (20:55)
[2020-05-23 06:00] LABS: #Eosinphils 0.1 thou/uL (0.0-0.7); #Lymphocytes 1.4 thou/uL (1.20-3.40); #Neutrophils 12.5 thou/uL (1.40-6.50); %Eosinophils 0.4 % (0.0-10.0); %Lymphocytes 9.2 % (21.0-51.0); %Neutrophils 83.5 % (42.0-75.0); Hemoglobin 12.3 g/dL (14.0-18.0); Mean Corpuscular HGB CONC 32.9 g/dL (32.0-36.0); Mean Corpuscular Hemoglobin 33.9 pg (27.0-31.0); Mean Platelet Volume 8.2 fL (7.4-10.4); Platelet Count 311 thou/uL (130-400); RBC Distribution Width 11.8 % (11.5-14.5); Red Blood Cell (RBC) Count 3.64 mill/uL (4.70-6.10); White Blood Cell (WBC) Count 14.9 thou/uL (4.8-10.8)
[2020-05-23] MEDS: Acetaminophen 325 MG TAB PO PRN (06:20)
[2020-05-23 06:23] LABS: ALT (SGPT) 37 U/L (8-55); AST (SGOT) 14 U/L (5-34); Albumin 2.9 g/dL (3.4-4.8); Alkaline Phosphatase 51 U/L (40-110); Anion Gap 12 mmol/L (10-20); BUN (Urea Nitrogen) 11 mg/dL (8.4-25.7); Bilirubin, Total 0.6 mg/dL (0.2-1.2); CRP (Inflammatory) 4.22 mg/dL (= or < 0.5); Calc. Creatinine Clearance 174 mL/min (70-130); Calcium 8.2 mg/dL (7.8-10.44); Carbon Dioxide 28 mmol/L (23-31); Chloride 101 mmol/L (98-107); Globulin 2.9 g/dL (2.4-3.5); Glucose 87 mg/dL (80-115); Potassium 4.5 mmol/L (3.5-5.1); Protein, Total 5.8 g/dL (5.8-8.1); Sodium 136 mmol/L (136-145)
--- NOTE | 2020-05-23 08:07 | RAD ---
EXAM: Single view of the chest HISTORY: Covid pneumonia COMPARISON: 05/20/2020 FINDINGS: Single view of the chest shows an enlarged but stable cardiomediastinal silhouette. There a re stable multifocal mixed infiltrates in the lungs. No pleural effusion is seen. No acute osseous abnormality. IMPRESSION: Multifocal infiltrates
[2020-05-23] MEDS: Dexamethasone 4 mg/ml Vial SLOW IVP SCH (08:29)
[2020-05-23] MEDS: Enoxaparin Sodium 40 MG/0.4 ML SYRINGE SC SCH (08:29)
[2020-05-23] MEDS: Famotidine 20 MG TAB PO SCH ×2 (08:30→20:18)
[2020-05-23] MEDS: Ascorbic Acid 500 mg Chewable Tablet PO SCH (08:30)
[2020-05-23] MEDS: Aspirin Chewable 81 MG TAB PO SCH (08:30)
[2020-05-23] MEDS: Zinc Sulfate 220 MG CAP PO SCH (08:30)
[2020-05-23] MEDS: Cholecalciferol 1,000 UNITS (25 MCG) TAB PO SCH (08:30)
[2020-05-23] MEDS: Tamsulosin HCl 0.4 MG CAP PO SCH (08:30)
[2020-05-23] MEDS: Diabetic Tussin 200 MG/10 ML UDCUP PO PRN ×2 (08:31→20:18)
--- NOTE | 2020-05-23 13:51 | PDOC.HOSPP ---
- Subjective Encounter Date: 05/23/20 Encounter Time: 11:00 Subjective: is sitting in chair, no sob, is wearing high flow no diarrhea, tolerating oral diet can ambulate to bathroom and back off high flow O2 - Objective Vital Signs & Weight: Vital Signs (12 hours) Temp Pulse Resp BP Pulse Ox 05/23/20 11:04 95 05/23/20 08:18 97.8 F 52 L 20 159/90 H 94 L 05/23/20 08:00 94 L 05/23/20 05:31 91 L 05/23/20 04:00 97.9 F 50 L 20 144/81 H 94 L Weight Weight 268 lb 4.841 oz I&O: 05/22/20 05/23/20 05/24/20 06:59 06:59 06:59 Intake Total 720 720 Output Total 950 Balance 720 -230 Result Diagrams: 05/23/20 05:46 05/23/20 05:46 Hospitalist ROS - Medication Medications: Active Medications Generic Name Dose Route Start Last Admin Trade Name Freq PRN Reason Stop Dose Admin Acetaminophen 650 mg 05/14/20 16:32 05/23/20 06:20 Acetaminophen 325 Mg Tab PO 650 mg Q4H PRN Administration Headache/Fever/Mild Pain (1-3) Hydrocodone Bitart/Acetaminophen 1 tab 05/14/20 16:32 05/19/20 06:48 Hydrocodone/Acetaminophen 5/325 Mg Tablet PO 1 tab Q4H PRN Administration Moderate Pain (4-6) Albuterol Sulfate 2 puff 05/14/20 17:32 05/16/20 01:44 Albuterol 200 Puff (6.7gm Inhaler) INH 2 puff Q4H PRN Administration SOB &/or Wheezing Ascorbic Acid 1,000 mg 05/15/20 09:00 05/23/20 08:30 Ascorbic Acid 500 Mg Chewable Tablet PO 1,000 mg DAILY RADHA Administration Aspirin 81 mg 05/15/20 09:00 05/23/20 08:30 Aspirin Chewable 81 Mg Tab PO 81 mg DAILY RADHA Administration Atorvastatin Calcium 10 mg 05/14/20 21:00 05/22/20 20:55 Atorvastatin Calcium 10 Mg Tab PO 10 mg HS RADHA Administration Benzonatate 100 mg 05/14/20 16:32 05/22/20 20:55 Benzonatate 100 Mg Cap PO 100 mg Q6H PRN Administration Cough Cholecalciferol 2,000 units 05/15/20 09:00 05/23/20 08:30 Cholecalciferol 1,000 Units (25 Mcg) Tab PO 2,000 units DAILY RADHA Administration Dexamethasone 6 mg 05/15/20 09:00 05/23/20 08:29 Dexamethasone 4 Mg/Ml Vial SLOW IVP 6 mg DAILY RADHA Administration Enoxaparin Sodium 40 mg 05/15/20 09:00 05/23/20 08:29 Enoxaparin Sodium 40 Mg/0.4 Ml Syringe SC 40 mg 0900 RADHA Administration Famotidine 20 mg 05/14/20 21:00 05/23/20 08:30 Famotidine 20 Mg Tab PO 20 mg BID RADHA Administration Guaifenesin 200 mg 05/14/20 16:32 05/23/20 08:31 Diabetic Tussin 200 Mg/10 Ml Udcup PO 200 mg Q4H PRN Administration Cough Lorazepam 0.5 mg 05/15/20 00:53 05/21/20 02:28 Lorazepam 2 Mg/Ml Vial SLOW IVP 0.5 mg Q6H PRN Administration Anxiety/Agitation Tamsulosin HCl 0.4 mg 05/15/20 09:00 05/23/20 08:30 Tamsulosin Hcl 0.4 Mg Cap PO 0.4 mg DAILY RADHA Administration Zinc Sulfate 220 mg 05/15/20 09:00 05/23/20 08:30 Zinc Sulfate 220 Mg Cap PO 220 mg DAILY RADHA Administration Zolpidem Tartrate 5 mg 05/14/20 16:32 05/22/20 20:55 Zolpidem Tartrate 5 Mg Tab PO 5 mg HSPRN PRN Administration Insomnia - Exam General Appearance: awake alert Eye: PERRL, anicteric sclera ENT: no oropharyngeal lesions, moist mucosa Neck: supple, no JVD Heart: RRR, no murmur Respiratory: no wheezes, rales, rhonchi Gastrointestinal: soft, non-tender, non-distended, normal bowel sounds Extremities: no cyanosis, no edema Neurological: cranial nerve grossly intact, no focal deficits Psychiatric: normal affect, A&O x 3 Hosp A/P (1) Acute respiratory failure due to COVID-19 Code(s): U07.1 - COVID-19; J96.00 - ACUTE RESPIRATORY FAILURE, UNSP W HYPOXIA OR HYPERCAPNIA Status: Acute (2) Pneumonia due to 2019 novel coronavirus Code(s): U07.1 - COVID-19; J12.89 - OTHER VIRAL PNEUMONIA Status: Acute (3) Benign enlargement of prostate Code(s): N40.0 - BENIGN PROSTATIC HYPERPLASIA WITHOUT LOWER URINRY TRACT SYMP Status: Chronic Qualifiers: Lower urinary tract symptom presence: symptoms absent Qualified Code(s): N40.0 - Benign prostatic hyperplasia without lower urinary tract symptoms (4) Dyslipidemia Code(s): E78.5 - HYPERLIPIDEMIA, UNSPECIFIED Status: Chronic (5) Macrocytic anemia Code(s): D53.9 - NUTRITIONAL ANEMIA, UNSPECIFIED Status: Chronic (6) Obesity (BMI 30-39.9) Code(s): E66.9 - OBESITY, UNSPECIFIED Status: Chronic - Plan is on high flow O2, dexamethasone, vit C, zinc, aspirin, lipitor, flomax hemostable wean high flow as tolerated encouraged to mobilize as tolerated and exercise on bed PT ovi d/w daughter e and gave an update (05/21, 05/23)
[2020-05-23] MEDS ORDERED: Cyanocobalamin 1000 MCG/ML VIAL IM SCH (15:00)
[2020-05-23] MEDS: Benzonatate 100 MG CAP PO PRN ×2 (15:08→20:18)
[2020-05-23] MEDS: Atorvastatin Calcium 10 MG TAB PO SCH (20:17)
[2020-05-24] MEDS: Aspirin Chewable 81 MG TAB PO SCH (08:05)
[2020-05-24] MEDS: Ascorbic Acid 500 mg Chewable Tablet PO SCH (08:05)
[2020-05-24] MEDS: Famotidine 20 MG TAB PO SCH ×2 (08:06→20:41)
[2020-05-24] MEDS: Cholecalciferol 1,000 UNITS (25 MCG) TAB PO SCH (08:06)
[2020-05-24] MEDS: Enoxaparin Sodium 40 MG/0.4 ML SYRINGE SC SCH (08:06)
[2020-05-24] MEDS: Tamsulosin HCl 0.4 MG CAP PO SCH (08:06)
[2020-05-24] MEDS: Dexamethasone 4 mg/ml Vial SLOW IVP SCH (08:07)
[2020-05-24] MEDS: Zinc Sulfate 220 MG CAP PO SCH (08:07)
--- NOTE | 2020-05-24 13:53 | PDOC.HOSPP ---
- Subjective Encounter Date: 05/24/20 Encounter Time: 09:45 Subjective: is on nasal canula this am feels good is amb in room and eating well - Objective Vital Signs & Weight: Vital Signs (12 hours) Temp Pulse Resp BP Pulse Ox 05/24/20 08:00 98.3 F 52 L 20 143/75 H 95 Weight Weight 268 lb 4.841 oz I&O: 05/23/20 05/24/20 05/25/20 06:59 06:59 06:59 Intake Total 720 800 Output Total 950 2000 Balance -230 -1200 Result Diagrams: 05/23/20 05:46 05/23/20 05:46 Hospitalist ROS - Medication Medications: Active Medications Generic Name Dose Route Start Last Admin Trade Name Freq PRN Reason Stop Dose Admin Acetaminophen 650 mg 05/14/20 16:32 05/23/20 06:20 Acetaminophen 325 Mg Tab PO 650 mg Q4H PRN Administration Headache/Fever/Mild Pain (1-3) Hydrocodone Bitart/Acetaminophen 1 tab 05/14/20 16:32 05/19/20 06:48 Hydrocodone/Acetaminophen 5/325 Mg Tablet PO 1 tab Q4H PRN Administration Moderate Pain (4-6) Albuterol Sulfate 2 puff 05/14/20 17:32 05/16/20 01:44 Albuterol 200 Puff (6.7gm Inhaler) INH 2 puff Q4H PRN Administration SOB &/or Wheezing Ascorbic Acid 1,000 mg 05/15/20 09:00 05/24/20 08:05 Ascorbic Acid 500 Mg Chewable Tablet PO 1,000 mg DAILY RADHA Administration Aspirin 81 mg 05/15/20 09:00 05/24/20 08:05 Aspirin Chewable 81 Mg Tab PO 81 mg DAILY RADHA Administration Atorvastatin Calcium 10 mg 05/14/20 21:00 05/23/20 20:17 Atorvastatin Calcium 10 Mg Tab PO 10 mg HS RADHA Administration Benzonatate 100 mg 05/14/20 16:32 05/23/20 20:18 Benzonatate 100 Mg Cap PO 100 mg Q6H PRN Administration Cough Cholecalciferol 2,000 units 05/15/20 09:00 05/24/20 08:06 Cholecalciferol 1,000 Units (25 Mcg) Tab PO 2,000 units DAILY RADHA Administration Cyanocobalamin 1,000 mcg 05/23/20 15:00 05/23/20 15:07 Cyanocobalamin 1000 Mcg/Ml Vial IM 1,000 mcg Q28D RADHA Administration Dexamethasone 6 mg 05/15/20 09:00 05/24/20 08:07 Dexamethasone 4 Mg/Ml Vial SLOW IVP 6 mg DAILY RADHA Administration Enoxaparin Sodium 40 mg 05/15/20 09:00 05/24/20 08:06 Enoxaparin Sodium 40 Mg/0.4 Ml Syringe SC 40 mg 0900 RADHA Administration Famotidine 20 mg 05/14/20 21:00 05/24/20 08:06 Famotidine 20 Mg Tab PO 20 mg BID RADHA Administration Guaifenesin 200 mg 05/14/20 16:32 05/23/20 20:18 Diabetic Tussin 200 Mg/10 Ml Udcup PO 200 mg Q4H PRN Administration Cough Lorazepam 0.5 mg 05/15/20 00:53 05/21/20 02:28 Lorazepam 2 Mg/Ml Vial SLOW IVP 0.5 mg Q6H PRN Administration Anxiety/Agitation Tamsulosin HCl 0.4 mg 05/15/20 09:00 05/24/20 08:06 Tamsulosin Hcl 0.4 Mg Cap PO 0.4 mg DAILY RADHA Administration Zinc Sulfate 220 mg 05/15/20 09:00 05/24/20 08:07 Zinc Sulfate 220 Mg Cap PO 220 mg DAILY RADHA Administration Zolpidem Tartrate 5 mg 05/14/20 16:32 05/22/20 20:55 Zolpidem Tartrate 5 Mg Tab PO 5 mg HSPRN PRN Administration Insomnia - Exam General Appearance: awake alert Eye: PERRL, anicteric sclera ENT: no oropharyngeal lesions, moist mucosa Neck: supple, no JVD Heart: RRR, no murmur Respiratory: no wheezes, rales, rhonchi Gastrointestinal: soft, non-tender, non-distended, normal bowel sounds Extremities: no cyanosis, no edema Neurological: cranial nerve grossly intact, no focal deficits Psychiatric: normal affect, A&O x 3 Hosp A/P (1) Acute respiratory failure due to COVID-19 Code(s): U07.1 - COVID-19; J96.00 - ACUTE RESPIRATORY FAILURE, UNSP W HYPOXIA OR HYPERCAPNIA Status: Acute (2) Pneumonia due to 2019 novel coronavirus Code(s): U07.1 - COVID-19; J12.89 - OTHER VIRAL PNEUMONIA Status: Acute (3) Benign enlargement of prostate Code(s): N40.0 - BENIGN PROSTATIC HYPERPLASIA WITHOUT LOWER URINRY TRACT SYMP Status: Chronic Qualifiers: Lower urinary tract symptom presence: symptoms absent Qualified Code(s): N40.0 - Benign prostatic hyperplasia without lower urinary tract symptoms (4) Dyslipidemia Code(s): E78.5 - HYPERLIPIDEMIA, UNSPECIFIED Status: Chronic (5) Macrocytic anemia Code(s): D53.9 - NUTRITIONAL ANEMIA, UNSPECIFIED Status: Chronic (6) Obesity (BMI 30-39.9) Code(s): E66.9 - OBESITY, UNSPECIFIED Status: Chronic - Plan is on nasal canula 4 lts O2, dexamethasone, vit C, zinc, aspirin, lipitor, flomax hemostable encouraged to mobilize as tolerated and exercise on bed PT eval d/w daughter and gave an update (05/21, 05/23, 05/24) has b/l extensive infiltrates, is improving wel
[2020-05-24] MEDS: Atorvastatin Calcium 10 MG TAB PO SCH (20:41)
[2020-05-24] MEDS: Acetaminophen 325 MG TAB PO PRN (20:47)
[2020-05-24] MEDS: Zolpidem Tartrate 5 MG TAB PO PRN (20:47)
[2020-05-24] MEDS: Diabetic Tussin 200 MG/10 ML UDCUP PO PRN (20:47)
[2020-05-25 05:35] LABS: #Eosinphils 0.1 thou/uL (0.0-0.7); #Lymphocytes 1.7 thou/uL (1.20-3.40); #Neutrophils 11.4 thou/uL (1.40-6.50); %Basophils 0.3 % (0.0-1.0); %Eosinophils 0.4 % (0.0-10.0); %Lymphocytes 12.2 % (21.0-51.0); %Monocytes 7.3 % (0.0-10.0); %Neutrophils 79.8 % (42.0-75.0); Hemoglobin 12.8 g/dL (14.0-18.0); Mean Corpuscular HGB CONC 32.9 g/dL (32.0-36.0); Mean Platelet Volume 8.6 fL (7.4-10.4); Platelet Count 306 thou/uL (130-400); RBC Distribution Width 11.8 % (11.5-14.5); Red Blood Cell (RBC) Count 3.76 mill/uL (4.70-6.10); White Blood Cell (WBC) Count 14.2 thou/uL (4.8-10.8)
[2020-05-25 06:36] LABS: Anion Gap 12 mmol/L (10-20); BUN (Urea Nitrogen) 14 mg/dL (8.4-25.7); CRP (Inflammatory) 1.68 mg/dL (= or < 0.5); Calc. Creatinine Clearance 176 mL/min (70-130); Calcium 8.2 mg/dL (7.8-10.44); Carbon Dioxide 26 mmol/L (23-31); Chloride 101 mmol/L (98-107); Glucose 81 mg/dL (80-115); Potassium 4.3 mmol/L (3.5-5.1); Sodium 135 mmol/L (136-145)
[2020-05-25] MEDS: Dexamethasone 4 MG TAB PO SCH (09:02)
[2020-05-25] MEDS: Famotidine 20 MG TAB PO SCH ×2 (09:06→20:53)
[2020-05-25] MEDS: Cholecalciferol 1,000 UNITS (25 MCG) TAB PO SCH (09:06)
[2020-05-25] MEDS: Ascorbic Acid 500 mg Chewable Tablet PO SCH (09:06)
[2020-05-25] MEDS: Tamsulosin HCl 0.4 MG CAP PO SCH (09:06)
[2020-05-25] MEDS: Aspirin Chewable 81 MG TAB PO SCH (09:06)
[2020-05-25] MEDS: Enoxaparin Sodium 40 MG/0.4 ML SYRINGE SC SCH (09:07)
[2020-05-25] MEDS: Zinc Sulfate 220 MG CAP PO SCH (09:07)
--- NOTE | 2020-05-25 13:13 | PDOC.HOSPP ---
- Subjective Encounter Date: 05/25/20 Encounter Time: 11:15 Subjective: is sitting in chair, on nasal canula feels good, has no complaints is able to ambulate to bathroom and back - Objective Vital Signs & Weight: Vital Signs (12 hours) Temp Pulse Resp BP Pulse Ox 05/25/20 08:00 98.1 F 50 L 16 155/62 H 96 05/25/20 06:55 84 18 93 L Weight Admit Weight 268 lb 4.8 oz Weight 268 lb 4.841 oz I&O: 05/24/20 05/25/20 05/26/20 06:59 06:59 06:59 Intake Total 800 Output Total 2000 Balance -1200 Result Diagrams: 05/25/20 05:09 05/25/20 05:08 Hospitalist ROS - Medication Medications: Active Medications Generic Name Dose Route Start Last Admin Trade Name Freq PRN Reason Stop Dose Admin Acetaminophen 650 mg 05/14/20 16:32 05/24/20 20:47 Acetaminophen 325 Mg Tab PO 650 mg Q4H PRN Administration Headache/Fever/Mild Pain (1-3) Albuterol Sulfate 2 puff 05/14/20 17:32 05/16/20 01:44 Albuterol 200 Puff (6.7gm Inhaler) INH 2 puff Q4H PRN Administration SOB &/or Wheezing Ascorbic Acid 1,000 mg 05/15/20 09:00 05/25/20 09:06 Ascorbic Acid 500 Mg Chewable Tablet PO 1,000 mg DAILY RADHA Administration Aspirin 81 mg 05/15/20 09:00 05/25/20 09:06 Aspirin Chewable 81 Mg Tab PO 81 mg DAILY RADHA Administration Atorvastatin Calcium 10 mg 05/14/20 21:00 05/24/20 20:41 Atorvastatin Calcium 10 Mg Tab PO 10 mg HS RADHA Administration Benzonatate 100 mg 05/14/20 16:32 05/23/20 20:18 Benzonatate 100 Mg Cap PO 100 mg Q6H PRN Administration Cough Cholecalciferol 2,000 units 05/15/20 09:00 05/25/20 09:06 Cholecalciferol 1,000 Units (25 Mcg) Tab PO 2,000 units DAILY RADHA Administration Cyanocobalamin 1,000 mcg 05/23/20 15:00 05/23/20 15:07 Cyanocobalamin 1000 Mcg/Ml Vial IM 1,000 mcg Q28D RADHA Administration Dexamethasone 6 mg 05/25/20 08:00 05/25/20 09:02 Dexamethasone 4 Mg Tab PO 6 mg QAM-WM RADHA Administration Enoxaparin Sodium 40 mg 05/15/20 09:00 05/25/20 09:07 Enoxaparin Sodium 40 Mg/0.4 Ml Syringe SC 40 mg 0900 RADHA Administration Famotidine 20 mg 05/14/20 21:00 05/25/20 09:06 Famotidine 20 Mg Tab PO 20 mg BID RADHA Administration Guaifenesin 200 mg 05/14/20 16:32 05/24/20 20:47 Diabetic Tussin 200 Mg/10 Ml Udcup PO 200 mg Q4H PRN Administration Cough Tamsulosin HCl 0.4 mg 05/15/20 09:00 05/25/20 09:06 Tamsulosin Hcl 0.4 Mg Cap PO 0.4 mg DAILY RADHA Administration Zinc Sulfate 220 mg 05/15/20 09:00 05/25/20 09:07 Zinc Sulfate 220 Mg Cap PO 220 mg DAILY RADHA Administration Zolpidem Tartrate 5 mg 05/14/20 16:32 05/24/20 20:47 Zolpidem Tartrate 5 Mg Tab PO 5 mg HSPRN PRN Administration Insomnia - Exam General Appearance: awake alert Eye: PERRL, anicteric sclera ENT: no oropharyngeal lesions, moist mucosa Neck: supple, no JVD Heart: RRR, no murmur Respiratory: no wheezes, rales, rhonchi Gastrointestinal: soft, non-tender, non-distended, normal bowel sounds Extremities: no cyanosis, no edema Neurological: cranial nerve grossly intact, no focal deficits Psychiatric: normal affect, A&O x 3 Hosp A/P (1) Acute respiratory failure due to COVID-19 Code(s): U07.1 - COVID-19; J96.00 - ACUTE RESPIRATORY FAILURE, UNSP W HYPOXIA OR HYPERCAPNIA Status: Acute (2) Pneumonia due to 2019 novel coronavirus Code(s): U07.1 - COVID-19; J12.89 - OTHER VIRAL PNEUMONIA Status: Acute (3) Benign enlargement of prostate Code(s): N40.0 - BENIGN PROSTATIC HYPERPLASIA WITHOUT LOWER URINRY TRACT SYMP Status: Chronic Qualifiers: Lower urinary tract symptom presence: symptoms absent Qualified Code(s): N40.0 - Benign prostatic hyperplasia without lower urinary tract symptoms (4) Dyslipidemia Code(s): E78.5 - HYPERLIPIDEMIA, UNSPECIFIED Status: Chronic (5) Macrocytic anemia Code(s): D53.9 - NUTRITIONAL ANEMIA, UNSPECIFIED Status: Chronic (6) Obesity (BMI 30-39.9) Code(s): E66.9 - OBESITY, UNSPECIFIED Status: Chronic - Plan is on nasal canula 2 lts O2, dexamethasone, vit C, zinc, aspirin, lipitor, flomax hemostable encouraged to mobilize as tolerated and exercise on bed d/w daughter and gave an update (05/21, 05/23, 05/24) has b/l extensive infiltrates, is improving well likely dc plan in am on O2 and HH with PT
[2020-05-25] MEDS: Diabetic Tussin 200 MG/10 ML UDCUP PO PRN (20:52)
[2020-05-25] MEDS: Zolpidem Tartrate 5 MG TAB PO PRN (20:52)
[2020-05-25] MEDS: Atorvastatin Calcium 10 MG TAB PO SCH (20:52)
[2020-05-26] MEDS: Cholecalciferol 1,000 UNITS (25 MCG) TAB PO SCH (08:36)
[2020-05-26] MEDS: Aspirin Chewable 81 MG TAB PO SCH (08:36)
[2020-05-26] MEDS: Enoxaparin Sodium 40 MG/0.4 ML SYRINGE SC SCH (08:36)
[2020-05-26] MEDS: Famotidine 20 MG TAB PO SCH (08:36)
[2020-05-26] MEDS: Zinc Sulfate 220 MG CAP PO SCH (08:36)
[2020-05-26] MEDS: Dexamethasone 4 MG TAB PO SCH (08:36)
[2020-05-26] MEDS: Tamsulosin HCl 0.4 MG CAP PO SCH (08:36)
[2020-05-26] MEDS: Ascorbic Acid 500 mg Chewable Tablet PO SCH (08:36)
[2020-05-26 16:23] VITALS: BP 131/71; TEMP 98
--- NOTE | 2020-05-27 17:59 | DIS ---
DATE OF ADMISSION: 05/14/2020 DATE OF DISCHARGE: 05/26/2020 DISPOSITION: To home with [facility]. PRIMARY DISCHARGE DIAGNOSIS: COVID-19 pneumonia, acute respiratory failure with hypoxia. SECONDARY DISCHARGE DIAGNOSES: 1. Obesity. 2. Dyslipidemia. 3. Benign enlargement of prostate. 4. Macrocytic anemia. PROCEDURES DONE DURING HOSPITALIZATION: CT angio chest done on the day of admission showed no evidence of PE. There was severe bilateral COVID pneumonia findings including patchy ground-glass and linear opacity changes. Blood cultures x2, no growth. H and H of 12 and 38, MCV 103, and platelet count 306. Discharge BUN and creatinine of 14 and 0.7. Discharge ferritin is 569. Discharge CRP is 1.1. Had CRP of 25.1 on the day of admission. Ferritin on admission was 3696. Albumin is 2.9. DISCHARGE MEDICATIONS: 1. DuoNeb q.6 hourly p.r.n. 2. Dexamethasone 6 mg p.o. daily for another 4 days. 3. Vitamin D3 of 2000 units p.o. daily. 4. Vitamin C 1000 mg p.o. daily. 5. Vitamin B12 of 1000 mcg once a month intramuscular shot. 6. Pravachol 40 mg p.o. daily. 7. Melatonin 5 mg p.o. at bedtime p.r.n. 8. Losartan with hydrochlorothiazide 100/25 mg one tablet daily. 9. Flomax 0.4 mg p.o. daily. 10. Pepcid 20 mg daily. 11. Aspirin 81 mg p.o. daily. ALLERGIES: NO KNOWN DRUG ALLERGIES. DISCHARGE PLAN: The patient to follow up with his primary care physician, Dr. Robert Jurado in 1 week. He needs to see Dr. Armenta in 10 days. BRIEF COURSE DURING HOSPITALIZATION: The patient initially got admitted on the 14 of May with complaints of shortness of breath. He had tested positive for COVID-19 on the prior to admission here. The patient had bilateral severe patchy infiltrates and had to be placed on high-flow oxygen with acute respiratory failure and hypoxia. He was also given remdesivir along with steroids and nebulizations during his stay here. The patient has responded well to above measures. He was evaluated by Dr. Armenta for Infectious Disease as well. At the time of discharge, he has come down from his high-flow oxygen to 2 L nasal cannula and is ambulating in the room. He is also tolerating oral solid diet. The patient is feeling a whole lot better than when he came initially. I have given complete updates to the patient's daughter, who is also a nurse working here with followup and medication instructions. Case Management consultation was requested for home oxygen and the patient needs to follow up with his primary care physician in 1 week. Please note, I have seen and examined the patient on the day of discharge. Job ID: [id number] MTDD
--- NOTE | 2020-05-27 20:11 | PQF ---
Dear : Alessandro Mosley Date 05/27/2020 Please exercise your independent, professional judgment in responding to the clarification form. Clinical indicators are provided on the bottom of this form for your review Can you please further clarify if Sepsis is ruled in or ruled out? Sepsis [ x] Ruled in diagnosis [ ] Continue to treat [ x] Resolved [ ] Ruled out diagnosis [ ] Improving [ ] Cannot rule out diagnosis [ ] Other diagnosis [ ] Unable to determine Physician Signature: Date/Time: For continuity of documentation, please document condition throughout progress notes and discharge summary. Thank You. To be completed by CDI/Coding staff for physician review: Present Clinical Indicators - Signs / Symptoms / Labs Results and Location in Medical Record [ x ] VS: BP: 154/85 , Pulse 91, Rr: 38, T: 99.3 ED Provider pg.2 [ x ] Patient triggered sepsis alert due to being febrile, tachypneic and having leukocytosis ED Provider pg.3 [ x ] tested positive for COVID 19 H and P pg.1 [ x ] Acute respiratory failure due to COVID 19 H and P pg.4 [ x ] WBC: 18.0H, 15.0H, 11.7H, 12.2H, 15.9H, 16.9H, 15.6H, 14.9H, 14.2H Laboratory [ x ] Lactic acid: 1.7, 1.2 Laboratory [ x ] Blood culture no growth for 5 days Microbiology Present Risk Factors Results and Location in Medical Record [ x ] 64 years old ED Provider pg.1 [ x ] Smokes tobacco ED Provider pg.1 [ x ] Severe COVID pneumonia Present Treatments Results and Location in Medical Record [ x ] IV Fluids MAR [ x ] Infectious Consult Dr. Armenta 05/17 [ x ] Azithromycin 500mg IV MAR [ x ] Dexamethasone 1 tab PO MAR [ x ] Rocephin 1 gm IV MAR CDS/Manager Of Health Signature: Praveen Echevarriaaniyah Phone #: ext [phone] Date 05/27/2020 This is a permanent part of the Medical Record [facility]
--- NOTE | 2020-05-28 14:38 | EKG ---
Test Reason : PNA Blood Pressure : / mmHG Vent. Rate : 084 BPM Atrial Rate : 084 BPM P-R Int : 134 ms QRS Dur : 098 ms QT Int : 354 ms P-R-T Axes : 012 000 005 degrees QTc Int : 418 ms Sinus rhythm with Premature atrial complexes Otherwise normal ECG Confirmed by TEAGAN MAKI ([id number]), editorial clerk BRITT PLATT ([id number]) on 05/28/2020 2:37:59 PM Referred By: Confirmed By:TEAGAN MAKI
== END 2020-05-26 17:49 | disposition home health service (06) | DRG 871 ==
LOC: ERS 11:00 → T4-A 13:20
PROVIDERS: ADMIT Internal Medicine; ATTEND Internal Medicine
PROC: 8E0ZXY6 Isolation (ICD-10-PCS; principal; 2020-05-14)
DX: A41.89 Other specified sepsis (principal); U07.1 COVID-19; J12.89 Other viral pneumonia; J96.01 Acute respiratory failure with hypoxia; E66.9 Obesity, unspecified; E78.5 Hyperlipidemia, unspecified; N40.0 Benign prostatic hyperplasia without lower urinary tract symptoms; D53.9 Nutritional anemia, unspecified; E53.8 Deficiency of other specified B group vitamins; F17.220 Nicotine dependence, chewing tobacco, uncomplicated; E78.00 Pure hypercholesterolemia, unspecified; I10 Essential (primary) hypertension; E87.6 Hypokalemia; F41.9 Anxiety disorder, unspecified; R74.01 Elevation of levels of liver transaminase levels; Z68.38 Body mass index [BMI] 38.0-38.9, adult; Z79.899 Other long term (current) drug therapy; Z79.82 Long term (current) use of aspirin; Z79.2 Long term (current) use of antibiotics; Z85.828 Personal history of other malignant neoplasm of skin
CPT/HCPCS: 36415; 36416; 36600; 71045; 71275; 80048; 80053; 82728; 82805; 83605; 83615; 83735; 83880; 84484; 85025; 85379; 86140; 87040; 93005; 93010; 94640; 96365; J0456; J0696; J1100; J1650; J1940; J2060; J3420; J3490; J7050; J8540; Q9967